=== PATIENT | female | born 1940 | race Caucasian/White ===

== ENCOUNTER 2016-07-01 06:11 | Day surgery (SDC) | payer MEDICARE, OTHER ==
[~2016-07-01] VITALS: Ht 175.3 cm; Wt 88.5 kg
[~2016-07-01 06:11] MED LIST: ADVAIR DISK1 IN; ALL DAY ALLG10 MG OR; AMOXICILLIN/CL875 MG PO; ANUCORT-HC25 MG RE; ASPIRIN LOW81 M1 PO; AUGMENTINES600 PO; BABY ASPIRIN81 MG PO; BACTRIM DS1 TAB PO; BIOTIN5000 MC2 PO; CELEBREX50 MG PO; CEPHALEXIN500 MG PO; CIPROFLOXACN500 MG PO; CYANOCOBALAM1000 MCG IJ; CYANOCOBALAM1000 MCG IM; CYANOCOBALAM1000 MCG SC; DEPO-MEDROL40 MG/ML IM; DIPHENHYDRAM25 M4 PO; FLONASE NASAL50 MCG; FLUARIX QUADRIV1 INJ IM; FLUZONE1 M1 IM; GABAPENTIN300 MG OR; GABAPENTIN300 MG PO; GLIMEPIRIDE2 MG PO; GLIMEPIRIDE4 MG PO; HYCODAN1 ML OR; HYCODAN1 ML PO; IBUPROFEN600 MG PO; ISOSORB DIN30 MG PO; JANUVIA50 MG PO; LEVOTHYROXIN50 MC1 PO; LEXAPRO20 MG PO; LORTAB 5/3255 MG PO; LUNESTA2 M1 OR; LYRICA50 MG PO; MAGNESIUM 250 M1 TAB; MELATONIN5 MG OR; MELOXICAM15 MG PO; MELOXICAM7.5 MG PO; METO50TA52 PO; NAPROSYN500 MG PO; NEURONTIN100 MG PO; NEURONTIN300 MG PO; NEXIUM20 M1 PO; NORCO1 TA1 PO; OMEPRAZOLE20 MG OR; PHILLIPS COLON HEALT PO; POTASSIMIN75 MG PO; PRED FORTE1 % OP; PROAIR HFA IN; PROBIOTI1 OR; PROCTOSOL HC2.5 % RE; PROTONIX40 M2 PO; ROCEPHIN 1 GM1 GM IM; SUPER BIOTIN5000 MCG OR; SYNTHROID100 MCG PO; SYNTHROID25 MCG PO; TOPROL XL25 MG PO; TOPROL XL50 MG PO; TRAMADOL HCL50 MG PO; VERAPAMIL180 M1 OR; ZETIA10 MG PO; ZITHROMAX250 MG PO; ZOFRAN ODT4 MG PO; ZOFRAN4 MG/TAB PO; ZOSTAVAX IM; [UNRECOGNIZED DRUG - OTHER] VA
[2016-07-01 07:39] VITALS: BP 132/70
== END 2016-07-01 08:10 | disposition home or self-care (01) ==
LOC: ORM 06:11
PROVIDERS: ATTEND Anesthesiology Pain Medicine
PROC: 3E0U33Z Introduction of Anti-inflammatory into Joints, Percutaneous Approach (ICD-10-PCS; principal; 2016-07-01)
PROC: 3E0U3BZ Introduction of Anesthetic Agent into Joints, Percutaneous Approach (ICD-10-PCS; 2016-07-01)
DX: M54.2 Cervicalgia (principal)

== ENCOUNTER 2016-07-29 06:32 | Day surgery (SDC) | payer MEDICARE, OTHER ==
[2016-07-29] MEDS ORDERED: METOPROL TAR25 MG PO (06:56)
[2016-07-29 08:59] VITALS: BP 156/74
== END 2016-07-29 09:10 | disposition home or self-care (01) ==
LOC: ORM 06:32
PROVIDERS: ATTEND Anesthesiology Pain Medicine
PROC: 3E0T3BZ Introduction of Anesthetic Agent into Peripheral Nerves and Plexi, Percutaneous Approach (ICD-10-PCS; principal; 2016-07-29)
PROC: 3E0T33Z Introduction of Anti-inflammatory into Peripheral Nerves and Plexi, Percutaneous Approach (ICD-10-PCS; 2016-07-29)
DX: M54.2 Cervicalgia (principal); M47.812 Spondylosis without myelopathy or radiculopathy, cervical region

== ENCOUNTER 2016-08-04 16:28 | Observation (INO) | payer MEDICARE, OTHER ==
[~2016-08-04] VITALS: Ht 175.3 cm; Wt 93.0 kg
[~2016-08-04 16:28] MED LIST changes: +METOPROL TAR25 MG PO
[2016-08-04 16:58] LABS: HEMATOCRIT 40.4 % (37.0-47.0); HEMOGLOBIN 13.3 g/dl (12.0-16.0); IMMATURE GRANULOCYTES 0.8 % (0.0-1.0); MEAN CELL VOLUME 91.8 fL CALC (80.0-100.0); MEAN CORPUSCULAR HGB 30.2 pG CALC (26.0-32.0); MEAN CORPUSCULAR HGB CONC 32.9 g/L CALC (32.0-36.0); NEUT# 4.92 thou/uL (2.00-7.15); RED BLOOD COUNT 4.4 mill/uL (4.20-5.60); RED CELL DISTRI WIDTH 13.5 % (11.5-15.5)
[2016-08-04 17:11] LABS: ALBUMIN 3.4 g/dL (3.2-5.0); ALKALINE PHOSPHATASE 104 u/l (38-126); ANION GAP 11 (6-22 (CALC)); BILIRUBIN, TOTAL 0.5 mg/dL (0.0-1.4); BUN 23 mg/dL (8-23); BUN/CREATININE RATIO 18 (12-20 (CALC)); CALCIUM 8.5 mg/dL (8.4-10.2); CARBON DIOXIDE 23 mmol/l (22-30); CHLORIDE 110 mmol/l (95-108); CREATININE 1.3 mg/dL (0.5-1.0); GFR 40 ML/MIN (>=60 (CALC)); GFR FOR AFR.AMER. 48 ML/MIN (>=60 (CALC)); GLUCOSE 100 mg/dL (82-115); POTASSIUM 4.3 mmol/l (3.5-5.1); SGOT/AST 36 u/l (9-36); SGPT/ALT 35 u/l (11-66); SODIUM 139 mmol/l (137-146); TOTAL PROTEIN 6.3 g/dL (6.3-8.2)
[2016-08-04 17:23] LABS: MYOGLOBIN 38 ng/mL (0 - 62)
[2016-08-04 19:45] VITALS: BP 152/88
[2016-08-04 21:45] VITALS: BP 147/72
[2016-08-04 23:28] VITALS: BP 126/66
[2016-08-05 00:48] LABS: URINE BILIRUBIN - DIPSTICK NEGATIVE (NEGATIVE); URINE BLOOD DIPSTICK NEGATIVE (NEGATIVE); URINE CLARITY CLEAR; URINE COLOR YELLOW; URINE GLUCOSE - DIPSTICK 250 mg/dL (NEGATIVE); URINE KETONE NEGATIVE (NEGATIVE); URINE LEUK ESTERASE NEGATIVE (Negative); URINE NITRITE - DIPSTICK NEGATIVE (Negative); URINE PROTEIN - DIPSTICK NEGATIVE (NEG-TRACE); URINE UROBILINOGEN - DIPSTICK 0.2 E.U./dL (0.2)
[2016-08-05 03:40] VITALS: BP 136/75
[2016-08-05 06:30] LABS: CHOLESTEROL HDL RATIO 2.5 (<4.4 (CALC))
[2016-08-05 08:37] VITALS: BP 150/79
[2016-08-05 09:41] VITALS: BP 170/78
[2016-08-05 09:42] VITALS: BP 160/78
[2016-08-05 09:43] VITALS: BP 140/80
[2016-08-05] MEDS ORDERED: ASPIRIN ADULT L81 M2 PO (11:35)
[2016-08-05 12:53] VITALS: BP 147/78
== END 2016-08-05 12:45 | disposition home or self-care (01) ==
LOC: ENPENDDIS → ED 16:28 → ED-I 17:19 → ED 17:31 → MS2 17:32
PROVIDERS: Emergency Medicine; Internal Medicine; ADMIT Internal Medicine; ATTEND Internal Medicine
DX: R07.9 Chest pain, unspecified (principal); R55 Syncope and collapse; I95.9 Hypotension, unspecified; R06.02 Shortness of breath; I10 Essential (primary) hypertension; I25.10 Atherosclerotic heart disease of native coronary artery without angina pectoris; E78.5 Hyperlipidemia, unspecified; F41.9 Anxiety disorder, unspecified; F32.9 Major depressive disorder, single episode, unspecified; E03.9 Hypothyroidism, unspecified; I25.2 Old myocardial infarction; Z98.84 Bariatric surgery status; Z95.5 Presence of coronary angioplasty implant and graft

== ENCOUNTER 2017-01-11 14:38 | Emergency (ER) | payer MEDICARE, OTHER ==
[~2017-01-11] VITALS: Ht 175.3 cm; Wt 92.0 kg
[~2017-01-11 14:38] MED LIST changes: +ASPIRIN ADULT L81 M2 PO; -MAGNESIUM 250 M1 TAB; +MAGNESIUM 250 M1 TAB PO
[2017-01-11] MEDS ORDERED: B-12 IM (15:16)
[2017-01-11] MEDS ORDERED: IRON IM (15:18)
[2017-01-11] MEDS ORDERED: ULTRAM50 M1 PO (15:42)
[2017-01-11 16:10] VITALS: BP 140/80
== END 2017-01-11 16:10 | disposition home or self-care (01) ==
LOC: ED 14:38
PROC: 2W3DX1Z Immobilization of Left Lower Arm using Splint (ICD-10-PCS; principal; 2017-01-11)
DX: S52.615A Nondisplaced fracture of left ulna styloid process, initial encounter for closed fracture (principal); S52.502A Unspecified fracture of the lower end of left radius, initial encounter for closed fracture; W01.0XXA Fall on same level from slipping, tripping and stumbling without subsequent striking against object, initial encounter; Y93.01 Activity, walking, marching and hiking; Y92.009 Unspecified place in unspecified non-institutional (private) residence as the place of occurrence of the external cause

== ENCOUNTER 2017-03-23 09:30 | Observation (INO) | payer MEDICARE, OTHER ==
[~2017-03-23] VITALS: Ht 172.7 cm; Wt 93.0 kg
[~2017-03-23 09:30] MED LIST changes: +B-12 IM; +IRON IM; +ULTRAM50 M1 PO
--- NOTE | 2017-03-23 09:30 | NUR ---
PT TO ROOM 13 VIA WC. PT ABLE TO STAND AND TRANSFER SELF WITHOUT ASSIST.
[2017-03-23 10:17] LABS: HEMATOCRIT 37.1 % (37.0-47.0); HEMOGLOBIN 12.4 g/dl (12.0-16.0); IMMATURE GRANULOCYTES 0.2 % (0.0-1.0); MEAN CELL VOLUME 91.4 fL CALC (80.0-100.0); MEAN CORPUSCULAR HGB 30.5 pG CALC (26.0-32.0); MEAN CORPUSCULAR HGB CONC 33.4 g/L CALC (32.0-36.0); NEUT# 2.93 thou/uL (2.00-7.15); RED BLOOD COUNT 4.06 mill/uL (4.20-5.60); RED CELL DISTRI WIDTH 13.9 % (11.5-15.5)
[2017-03-23] MEDS ORDERED: AMITRIPTYLIN25 MG PO (10:22)
[2017-03-23] MEDS ORDERED: MULTIVITAMI1 PO (10:23)
[2017-03-23] MEDS ORDERED: MELATONIN1 TA1 PO (10:24)
--- NOTE | 2017-03-23 10:24 | NUR ---
REVIEWED HOME MEDS WITH PT & . PT TALKATIVE & JOKING WITH STAFF.
--- NOTE | 2017-03-23 10:27 | NUR ---
1ST NITRO GIVEN AT 1022, STATES 5/10 PAIN- LESSER THAN BEFORE. 2ND NITRO GIVEN AT 1027, STATES 4/10 PAIN. 3RD NITRO NOT GIVEN DUE TO BP DROP TO 113/56.
[2017-03-23 10:40] LABS: ANION GAP 14 (6-22 (CALC)); BUN 13 mg/dL (8-23); BUN/CREATININE RATIO 12 (12-20 (CALC)); CARBON DIOXIDE 22 mmol/l (22-30); CHLORIDE 108 mmol/l (95-108); CREATININE 1.1 mg/dL (0.5-1.0); GFR 48 ML/MIN (>=60 (CALC)); GFR FOR AFR.AMER. 59 ML/MIN (>=60 (CALC)); POTASSIUM 4.6 mmol/l (3.5-5.1); SODIUM 140 mmol/l (137-146)
--- NOTE | 2017-03-23 10:55 | NUR ---
PT STATES CP IS NOW 4/10 AND NO LONGER RADIATES TO NECK OR BACK. DENIES NAUSEA. DISCUSSED PAIN MEDICATION ORDERED WITH DR RIOJAS. BEULAH ADVISED TO HOLD MORPHINE & ZOPFRAN AT THIS TIME.
--- NOTE | 2017-03-23 11:40 | NUR ---
PT STATES CP IS 5/10, BP BACK UP TO WHEN SHE ARRIVED IN ER. @ BEDSIDE. WAITING ON ROOM FOR ADMIT.
--- NOTE | 2017-03-23 12:02 | NUR ---
RECVING [facility] CASTILLO.
--- NOTE | 2017-03-23 12:51 | NUR ---
RECVING EL[facility]
--- NOTE | 2017-03-23 13:01 | NUR ---
Admission Note Report Given to: KEERTHI Transported by: Wheelchair X Stretcher Transported with: X Nurse Transporter X Patent IV O2 X Medical Office Clerk
[2017-03-23 13:10] VITALS: BP 160/57
--- NOTE | 2017-03-23 13:10 | NUR ---
PT TO ROOM VIA WC ACCOMPANIED BY STAFF; AMBULATORY TO BED WITH STAND BY ASSIST; PT A/O X3; DENIES PAIN OR DISCOMFORT; TELE MONITOR IN PLACE; #[address], NO REDNESS OR EDEMA NOTED; HAND SPLINT TO LEFT ARM R/T PREVIOUS FX; PT ORIENTED TO ROOM AND CALL SYSTEM; WILL CONTINUE TO MONITOR.
--- NOTE | 2017-03-23 13:20 | NUR ---
PT TRANSFERED TO [facility] IN STABLE CONDITION. TOOK PTS PURSE.
--- NOTE | 2017-03-23 14:30 | NUR ---
PT MEDICATED FOR C/O NAUSEA; CALL BUENO WITHIN REACH; WILL CONTINUE TO MONITOR.
--- NOTE | 2017-03-23 15:42 | NUR ---
Patient feels better after given Phenergan. Patient has dry mouth, I notified the WOOD DOWEL MACHINE OPERATOR. c
[2017-03-23 16:12] VITALS: BP 176/66
--- NOTE | 2017-03-23 17:50 | NUR ---
PT SITTING ON SIDE OF BED; TOLERATING DINNER WELL; NO COMPLAINTS VOICED AT THIS TIME; CALL BUENO WITHIN REACH; WILL CONTINUE TO MONITOR.
--- NOTE | 2017-03-23 20:10 | NUR ---
FOUND PT ALERT AND ORIENTED X4, AMBULATING TO BRP, STEADY GAIT NOTED, SIGNIFICANT OTHER AT BEDSIDE, NO S/S OF DISTRESS NOTED, DENIES CHEST PAIN OR SOB, RESP ARE EVEN AND UNLABORED ON ROOM AIR, OXYGEN SET UP AT BEDSIDE, FAMILY MEMBER BROUGHT FOOD FROM [employer] FOR PT, EDUCATED PT ABOUT DIET ORDERED, VOICES UNDERSTANDING, EXPLAINED SAFETY MEASURES AND PLAN OF CARE, WELL MED SCHEDULE, INSTRUCTED TO REPORT ANY PAIN OR DISCOMFORT IMMEDIATELTY, VERBALIZES UNDERSTANDING, FREQUENTLY ROUNDS MADE. CALL BUENO, BST, FRESH WATER AND NEEDED SUPPLIES ARE WITHIN REACH.
--- NOTE | 2017-03-23 22:00 | NUR ---
PT REQUESTING SLEEPING PILL, NOTIFIED DR. LOPEZ OF PT REQUEST, WAITING FOR PHARMACY TO PROFILE RESTORIL.
--- NOTE | 2017-03-24 00:01 | NUR ---
PT APPEARS TO BE SLEEPING WITH EYES CLOSED, AROUSES EASILY TO ANY STIMULI, DENIES CHEST PAIN OR SOB, NO S/S OF DISTRESS NOTED, FREQUENTLY ROUNDS MADE.
[2017-03-24 00:12] VITALS: BP 153/68
[2017-03-24 03:49] VITALS: BP 156/82
--- NOTE | 2017-03-24 04:44 | NUR ---
PT VOICES NO COMPLAINTS, APPEARS TO BE SLEEPING COMFORTABLY IN NO DISTRESS, RESP ARE EVEN AND UNLABORED, CALL BUENO IS WITHIN REACH. FREQUENTLY ROUNDS MADE.
--- NOTE | 2017-03-24 06:09 | NUR ---
PT C/O ACHING JAW PAIN; RATES IT AT 6/10, MEDICATED WITH ULTRAM PO PER ORDERS, PUBLIC HEALTH SERVICE OFFICER IN PT ROOM DRAWING TROPONIN AND OTHER LABS ORDER, NO DISTRESS NOTED, DENIES SOB, RESP ARE EVEN AND UNLABORED ON ROOM AIR, CALL BUENO AT REACH, FREQUENTLY ROUNDS MADE.
[2017-03-24 06:24] LABS: HEMATOCRIT 41.5 % (37.0-47.0); HEMOGLOBIN 13.5 g/dl (12.0-16.0); MEAN CELL VOLUME 92.8 fL CALC (80.0-100.0); MEAN CORPUSCULAR HGB 30.2 pG CALC (26.0-32.0); MEAN CORPUSCULAR HGB CONC 32.5 g/L CALC (32.0-36.0); RED BLOOD COUNT 4.47 mill/uL (4.20-5.60); RED CELL DISTRI WIDTH 14.1 % (11.5-15.5)
[2017-03-24 06:36] LABS: CHOLESTEROL HDL RATIO 1.9 (<4.4 (CALC)); CREATININE 1.1 mg/dL (0.5-1.0); POTASSIUM 4.7 mmol/l (3.5-5.1)
--- NOTE | 2017-03-24 06:41 | NUR ---
PT STATES THE ACHING PAIN ON HER RIGHT JAW IS ABOUT THE SAME, PAIN DECREASED FROM 6/10 TO 5/10, NO DISTRESS NOTED, DENIES CHEST PAIN, OR PAIN IN ANOTHER BODY PART. RESP ARE EVEN AND UNLABORED ON ROOM AIR, WILL CONTINUE TO MONITOR CLOSELY.
--- NOTE | 2017-03-24 07:40 | NUR ---
REPORT RECEIVED FROM NIGHT NURSE. UPON ENTERING ROOM, PT.HAS A CLOTH OVER HER HEAD AND APPEARS TO BE CRYING. SHE DENIES CRYING WHEN ASKED, BUT REPORTS PAIN IN HER JAW 5/10. V/S ASSESSED AND EKG WERE ORDERED. PT.MEDICATED FOR P
[2017-03-24 07:45] VITALS: BP 161/61
--- NOTE | 2017-03-24 07:55 | NUR ---
PT.APPEARS TO BE CALMER AT THIS TIME AND REPORTS PAIN IS IMPROVING SOMEWHAT.
--- NOTE | 2017-03-24 10:00 | NUR ---
PT.MEDICATED AM ORDERS PROVIDE. PT.IS UPRIGHT IN RECLINER AND IS AT BEDSIDE. PT.ASSESSED AND POC DISCUSSED. PT.DENIES ANY OTHER NEEDS AT THIS TIME.
[2017-03-24 11:44] VITALS: BP 149/77
--- NOTE | 2017-03-24 16:31 | NUR ---
Patient feels good and getting a discharge. Patient was couseled on Imdur ER and Omperazole. c
[2017-03-24] MEDS ORDERED: OMEPRAZOLE20 MG PO (17:07)
[2017-03-24] MEDS ORDERED: ISOSORB MONO30 MG PO (17:07)
--- NOTE | 2017-03-24 17:24 | NUR ---
PT.DISCHARGED OFF UNIT FLOOR ACCOMPANIED BY US KEVIN. PT.IV REMOVED/SITE APPEARS HEALTHY, TELEMTRY MONITOR REMOVED. PT.WAS IN GOOD CONDITION UPON DISCHARGE.
== END 2017-03-24 17:17 | disposition home or self-care (01) ==
LOC: ED 09:30 → ED-I 10:58 → ED 11:15 → MS2 11:16
PROVIDERS: Family Medicine; ADMIT Internal Medicine; ATTEND Internal Medicine
DX: R07.89 Other chest pain (principal); I25.10 Atherosclerotic heart disease of native coronary artery without angina pectoris; I12.9 Hypertensive chronic kidney disease with stage 1 through stage 4 chronic kidney disease, or unspecified chronic kidney disease; N18.3 Chronic kidney disease, stage 3 (moderate); E78.5 Hyperlipidemia, unspecified; F32.9 Major depressive disorder, single episode, unspecified; F41.9 Anxiety disorder, unspecified; E03.9 Hypothyroidism, unspecified; I25.2 Old myocardial infarction; G62.9 Polyneuropathy, unspecified; K21.9 Gastro-esophageal reflux disease without esophagitis; T14.8XXS Other injury of unspecified body region, sequela; V89.2XXS Person injured in unspecified motor-vehicle accident, traffic, sequela; Z98.84 Bariatric surgery status; Z87.442 Personal history of urinary calculi; Z95.5 Presence of coronary angioplasty implant and graft

== ENCOUNTER 2017-04-29 18:40 | Observation (INO) | payer MEDICARE, OTHER ==
[~2017-04-29] VITALS: Ht 172.7 cm; Wt 88.1 kg
[~2017-04-29 18:40] MED LIST changes: +AMITRIPTYLIN25 MG PO; +ISOSORB MONO30 MG PO; +MELATONIN1 TA1 PO; +MULTIVITAMI1 PO; +NITROSTAT0.3 MG SL; +OMEPRAZOLE20 MG PO; +TRAMADOL HYDROC50 MG PO
--- NOTE | 2017-04-29 18:55 | NUR ---
PT TO ROOM FOR EXAM
--- NOTE | 2017-04-29 19:50 | NUR ---
Pt on [facility]. No obvious distress noted. Pt & spouse state that pain started at 1500 hrs this evening, exact same as previous pain. Pt does have cardiac stent placement in recent past.
[2017-04-29 20:11] LABS: HEMATOCRIT 37.3 % (37.0-47.0); HEMOGLOBIN 11.9 g/dl (12.0-16.0); IMMATURE GRANULOCYTES 0.2 % (0.0-1.0); MEAN CELL VOLUME 93.5 fL CALC (80.0-100.0); MEAN CORPUSCULAR HGB 29.8 pG CALC (26.0-32.0); MEAN CORPUSCULAR HGB CONC 31.9 g/L CALC (32.0-36.0); NEUT# 3.34 thou/uL (2.00-7.15); RED BLOOD COUNT 3.99 mill/uL (4.20-5.60); RED CELL DISTRI WIDTH 13.4 % (11.5-15.5)
[2017-04-29 20:21] LABS: ALBUMIN 3.6 g/dL (3.2-5.0); ALKALINE PHOSPHATASE 143 u/l (38-126); AMYLASE 64 u/l (30-110); BILIRUBIN, TOTAL 0.8 mg/dL (0.0-1.4); BUN 15 mg/dL (8-23); BUN/CREATININE RATIO 14 (12-20 (CALC)); CARBON DIOXIDE 28 mmol/l (22-30); CHLORIDE 104 mmol/l (95-108); CREATININE 1.1 mg/dL (0.5-1.0); GFR 48 ML/MIN (>=60 (CALC)); GFR FOR AFR.AMER. 59 ML/MIN (>=60 (CALC)); LIPASE 168 u/l (23-300); SGOT/AST 70 u/l (9-36); SGPT/ALT 33 u/l (11-66); SODIUM 140 mmol/l (137-146); TOTAL PROTEIN 6.6 g/dL (6.3-8.2)
[2017-04-29 20:23] LABS: ANION GAP 13 (6-22 (CALC))
[2017-04-29 20:26] LABS: POTASSIUM 5.2 mmol/l (3.5-5.1)
--- NOTE | 2017-04-29 20:36 | NUR ---
Pt states that pain is at a 1 on 1:10 leverl. Advised pt that she will probably be spending the evening in the hospital. Pt states that she understands and is in agreement with decision. Justice also agrees aith decision.
--- NOTE | 2017-04-29 20:44 | NUR ---
pt resting comfortably at this time. Spouse at bedside.
--- NOTE | 2017-04-29 22:39 | NUR ---
Report called to 2nd floor. Pt transported to floor via rmoline
[2017-04-29 22:40] VITALS: BP 133/69
--- NOTE | 2017-04-29 22:40 | NUR ---
PT TO ROOM 279 VIA STRETCHER ACCOMPANIED BY ER STAFF. PT IS ALERT AND ORIENTED X3. PERRLA. RESP ARE EVEN AND UNLABORED. NO DISTRESS NOTED. LUNGS ARE CLEAR. HR REGULAR. PT ON TELE. PULSES PALPABLE THROUGHOUT. NO EDEMA NOTED. BS ACTIVE. PT REPORTS NORMAL BM EARLIER TODAY. DENIES CP AT THIS TIME. DENIES SOB AT THIS TIME. #20 LAC SALINE LOCKED. NO REDNESS OR EDEMA NOTED. WILL CONTINUE TO GREATER [facility]
[2017-04-30] VITALS: BP 129/56
--- NOTE | 2017-04-30 | NUR ---
PT RESTING IN BED WITH EYES CLOSED. NO COMPLAINTS AT THIS TIME. RESP ARE EVEN AND UNLABORED. NO DISTRESS NOTED. WILL CONTINUE TO MONTIOR
--- NOTE | 2017-04-30 04:00 | NUR ---
PT RESTING IN BED WITH EYES CLOSED. RESP ARE EVEN AND UNLABORED. NO DISTRESS NOTED WILL CONTINUE TO MONITOR
[2017-04-30 05:28] VITALS: BP 136/76
[2017-04-30 06:40] LABS: HEMATOCRIT 35.3 % (37.0-47.0); HEMOGLOBIN 11.2 g/dl (12.0-16.0); IMMATURE GRANULOCYTES 0.2 % (0.0-1.0); MEAN CELL VOLUME 94.6 fL CALC (80.0-100.0); MEAN CORPUSCULAR HGB CONC 31.7 g/L CALC (32.0-36.0); NEUT# 1.85 thou/uL (2.00-7.15); RED BLOOD COUNT 3.73 mill/uL (4.20-5.60); RED CELL DISTRI WIDTH 13.5 % (11.5-15.5)
[2017-04-30 06:47] LABS: CHOLESTEROL HDL RATIO 1.9 (<4.4 (CALC))
[2017-04-30 06:55] LABS: CREATININE 1.1 mg/dL (0.5-1.0); POTASSIUM 4.6 mmol/l (3.5-5.1)
--- NOTE | 2017-04-30 07:00 | NUR ---
SHIFT CHANGE REPORT FROM IVETH BATES SLEEPING IN RIGHT SIDE-LYING POSITION, BREATHING EVEN AND NON-LABORED, TELE MONITOR IN PLACE, NO SIGN DISCOMFORT, CALL BUENO IN REACH.
[2017-04-30 08:19] VITALS: BP 138/71
[2017-04-30 11:00] VITALS: BP 147/56
--- NOTE | 2017-04-30 12:00 | NUR ---
SITTING UP IN BED HAVING MEAL, DENIES DISCOMFORT, INQUIRED ABOUT TIME MD COMING AND INFORMED HE WILL BE HERE BUT STAFF UNABLE TO GIVE DEFINITE TIME. WILL CONTINUE TO MONITOR.
--- NOTE | 2017-04-30 16:03 | NUR ---
RESTING IN BED, DR LOPEZ HERE ROUNDING AT THIS TIME, PT REPORTS SHE WANTS TO GO HOME, DENIES DISCOMFORT, WILL CONTINUE TO MONITOR.
[2017-04-30 16:53] VITALS: BP 142/63
--- NOTE | 2017-04-30 17:31 | NUR ---
Discharge instructions given. Patient verbalizes understanding of same. Discharged in good condition via Wheelchair to Home with spouse. All belongings sent with pt.
== END 2017-04-30 17:09 | disposition home or self-care (01) ==
LOC: ED 18:40 → ED-I 20:00 → ED 21:03 → MS2 21:04
PROVIDERS: Emergency Medicine; Internal Medicine; ADMIT Internal Medicine; ATTEND Internal Medicine
DX: I25.118 Atherosclerotic heart disease of native coronary artery with other forms of angina pectoris (principal); I10 Essential (primary) hypertension; E03.9 Hypothyroidism, unspecified; M19.90 Unspecified osteoarthritis, unspecified site; E78.5 Hyperlipidemia, unspecified; I25.2 Old myocardial infarction; F32.9 Major depressive disorder, single episode, unspecified; F41.9 Anxiety disorder, unspecified; Z98.84 Bariatric surgery status; Z86.73 Personal history of transient ischemic attack (TIA), and cerebral infarction without residual deficits; Z95.5 Presence of coronary angioplasty implant and graft

== ENCOUNTER 2017-06-21 06:01 | Observation (INO) | payer MEDICARE, OTHER ==
[~2017-06-21] VITALS: Ht 172.7 cm; Wt 95.8 kg
[2017-06-21 06:39] LABS: HEMATOCRIT 32.6 % (37.0-47.0); HEMOGLOBIN 10.5 g/dl (12.0-16.0); IMMATURE GRANULOCYTES 0.2 % (0.0-1.0); MEAN CELL VOLUME 91.8 fL CALC (80.0-100.0); MEAN CORPUSCULAR HGB 29.6 pG CALC (26.0-32.0); MEAN CORPUSCULAR HGB CONC 32.2 g/L CALC (32.0-36.0); NEUT# 1.86 thou/uL (2.00-7.15); RED BLOOD COUNT 3.55 mill/uL (4.20-5.60)
[2017-06-21 07:01] LABS: ALBUMIN 3.2 g/dL (3.2-5.0); ALKALINE PHOSPHATASE 117 u/l (38-126); ANION GAP 12 (6-22 (CALC)); BILIRUBIN, TOTAL 0.5 mg/dL (0.0-1.4); BUN 14 mg/dL (8-23); BUN/CREATININE RATIO 13 (12-20 (CALC)); CARBON DIOXIDE 26 mmol/l (22-30); CHLORIDE 106 mmol/l (95-108); CREATININE 1.1 mg/dL (0.5-1.0); GFR 48 ML/MIN (>=60 (CALC)); GFR FOR AFR.AMER. 59 ML/MIN (>=60 (CALC)); POTASSIUM 4.5 mmol/l (3.5-5.1); SGOT/AST 54 u/l (9-36); SGPT/ALT 31 u/l (11-66); SODIUM 139 mmol/l (137-146); TOTAL PROTEIN 6.4 g/dL (6.3-8.2)
[2017-06-21 07:10] LABS: ACT PARTIAL THROMBO TIME 29.2 SECONDS (20.0-32.5)
[2017-06-21] MEDS ORDERED: ASPIRIN81 MG PO (07:13)
[2017-06-21 07:14] LABS: MYOGLOBIN 32 ng/mL (0 - 62)
[2017-06-21 09:46] VITALS: BP 191/83
[2017-06-21 11:29] VITALS: BP 165/64
[2017-06-21 15:23] VITALS: BP 150/73
[2017-06-21 19:00] VITALS: BP 151/79
[2017-06-22] VITALS: BP 123/66
[2017-06-22 04:15] VITALS: BP 150/90
[2017-06-22 05:13] LABS: HEMATOCRIT 36.5 % (37.0-47.0); HEMOGLOBIN 12.1 g/dl (12.0-16.0); MEAN CELL VOLUME 90.6 fL CALC (80.0-100.0); MEAN CORPUSCULAR HGB CONC 33.2 g/L CALC (32.0-36.0); RED BLOOD COUNT 4.03 mill/uL (4.20-5.60); RED CELL DISTRI WIDTH 14.3 % (11.5-15.5)
[2017-06-22 05:25] LABS: ANION GAP 15 (6-22 (CALC)); BUN 13 mg/dL (8-23); BUN/CREATININE RATIO 14 (12-20 (CALC)); CARBON DIOXIDE 26 mmol/l (22-30); CHLORIDE 103 mmol/l (95-108); GFR 54 ML/MIN (>=60 (CALC)); GFR FOR AFR.AMER. > 60 ML/MIN (>=60 (CALC)); MAGNESIUM 1.7 mg/dL (1.6-2.3); POTASSIUM 4.7 mmol/l (3.5-5.1); SODIUM 139 mmol/l (137-146)
[2017-06-22 08:14] VITALS: BP 144/59
[2017-06-22 11:03] VITALS: BP 153/71
[2017-06-22] MEDS ORDERED: ISOSORB MONO60 M1 PO (12:53)
[2017-06-23] MEDS ORDERED: CELEBREX100 M1 PO (15:50)
[2017-06-23] MEDS ORDERED: LEVOTHYROXIN50 MCG PO (15:51)
[2017-06-23] MEDS ORDERED: LOSARTAN POT25 MG PO (15:56)
[2017-06-23] MEDS ORDERED: METO50TA52 PO (15:57)
== END 2017-06-22 13:46 | disposition home or self-care (01) ==
LOC: ED 06:01 → ED-I 08:05 → ED 08:11 → MS2 08:12
PROVIDERS: Emergency Medicine; Nurse Practitioner Family; ADMIT Internal Medicine; ATTEND Internal Medicine
DX: R07.2 Precordial pain (principal); I25.119 Atherosclerotic heart disease of native coronary artery with unspecified angina pectoris; E78.5 Hyperlipidemia, unspecified; I16.0 Hypertensive urgency; I13.10 Hypertensive heart and chronic kidney disease without heart failure, with stage 1 through stage 4 chronic kidney disease, or unspecified chronic kidney disease; D50.9 Iron deficiency anemia, unspecified; E11.22 Type 2 diabetes mellitus with diabetic chronic kidney disease; N18.3 Chronic kidney disease, stage 3 (moderate); F41.9 Anxiety disorder, unspecified; E03.9 Hypothyroidism, unspecified; M19.90 Unspecified osteoarthritis, unspecified site; F32.9 Major depressive disorder, single episode, unspecified; G62.9 Polyneuropathy, unspecified; M54.2 Cervicalgia; I25.2 Old myocardial infarction; Z87.442 Personal history of urinary calculi; Z98.84 Bariatric surgery status; Z95.5 Presence of coronary angioplasty implant and graft; Z86.73 Personal history of transient ischemic attack (TIA), and cerebral infarction without residual deficits
CPT/HCPCS: J1756

== ENCOUNTER 2017-06-23 12:03 | Inpatient (IN) | payer MEDICARE, OTHER ==
[2017-06-23] VITALS (11 sets, daily range): BP systolic 94–183; BP diastolic 60–85
[~2017-06-23] VITALS: Ht 172.7 cm; Wt 84.4 kg
[~2017-06-23 12:03] MED LIST changes: +ASPIRIN81 MG PO; +ISOSORB MONO60 M1 PO
--- NOTE | 2017-06-23 12:10 | NUR ---
PT ARRIVED TO THE UNIT VIA WC A DIRECT ADMIT, PT ASSISTED WITH CHANGING INTO HOSPITAL GOWN, MONITORING EQUIPMENT AND CALL BUENO SYSTEM EXPLAINED TO PT PRIOR TO APPLYING, PT VERBALIZED UNDERSTAND, PT A & O X3, PERRL, HR 130, RESP. 20, BP 129/65, O2 96% ON RA, LUNG SOUNDS CLEAR IN ALL ANTUNEZ, STRONG RADIAL & PEDAL PULSES, SKIN CD&I, 20G RW IV STARTED WITH NO INCIDENT, SALINE LOCKED, PT COMPLAINS OF LUQ PAIN, ADMISSION ASSESSMENT COMPLETE, SEE INTERVENTIONS, SAFETY MEASURES INTRODUCED, CALL BUENO WITHIN REACH
--- NOTE | 2017-06-23 12:20 | NUR ---
DR LOPEZ AT BEDSIDE DISCUSSING PLAN OF CARE
--- NOTE | 2017-06-23 13:10 | NUR ---
DR SANCHEZ AT BEDSIDE DISCUSSING PLAN OF CARE
[2017-06-23 13:21] LABS: HEMATOCRIT 39.5 % (37.0-47.0); HEMOGLOBIN 12.6 g/dl (12.0-16.0); IMMATURE GRANULOCYTES 0.3 % (0.0-1.0); MEAN CELL VOLUME 91.6 fL CALC (80.0-100.0); MEAN CORPUSCULAR HGB 29.2 pG CALC (26.0-32.0); MEAN CORPUSCULAR HGB CONC 31.9 g/L CALC (32.0-36.0); NEUT# 3.25 thou/uL (2.00-7.15); RED BLOOD COUNT 4.31 mill/uL (4.20-5.60); RED CELL DISTRI WIDTH 14.5 % (11.5-15.5)
--- NOTE | 2017-06-23 13:41 | NUR ---
R.T. AT BEDSIDE DOING AND EKG FOR RHYTHM CHANGE
--- NOTE | 2017-06-23 14:45 | NUR ---
PT ASSISTED TO THE BSC AND BACK TO BE, PT AMBULATED WITH A SLOW STEADY GAIT, PT TOLERATED WELL, CALL BUENO WITHIN REACH
--- NOTE | 2017-06-23 15:45 | NUR ---
PT'S AT BEDSIDE
[2017-06-23] MEDS ORDERED: CELEBREX100 M1 PO (15:50)
[2017-06-23] MEDS ORDERED: LEVOTHYROXIN50 MCG PO (15:51)
[2017-06-23] MEDS ORDERED: LOSARTAN POT25 MG PO (15:56)
[2017-06-23] MEDS ORDERED: METO50TA52 PO (15:57)
[2017-06-23 16:21] LABS: URINE BILIRUBIN - DIPSTICK NEGATIVE (NEGATIVE); URINE BLOOD DIPSTICK TRACE-INTACT (NEGATIVE); URINE COLOR YELLOW; URINE GLUCOSE - DIPSTICK NEGATIVE (NEGATIVE); URINE KETONE NEGATIVE (NEGATIVE); URINE NITRITE - DIPSTICK NEGATIVE (Negative); URINE PROTEIN - DIPSTICK NEGATIVE (NEG-TRACE); URINE UROBILINOGEN - DIPSTICK 0.2 E.U./dL (0.2)
[2017-06-23 16:23] LABS: URINE CLARITY SL CLOUDY; URINE LEUK ESTERASE MODERATE (NEGATIVE)
--- NOTE | 2017-06-23 16:24 | NUR ---
PT LAYING IN BED WATCHING TV, VERBALIZES NO COMPLAINTS, PT VITALS REMAIN STABLE, AT BEDSIDE, CALL BUENO WITHIN REACH
[2017-06-23 16:31] LABS: URINE BACTERIA MANY hpf; URINE SQUAMOUS EPITHELIAL CELL FEW EPI/hpf (0-FEW)
--- NOTE | 2017-06-23 17:37 | NUR ---
SETUP ASSISTANCE PROVIDED WITH PM MEAL, REMAINS AT BEDSIDE, CALL BUENO WITHIN REACH
--- NOTE | 2017-06-23 19:00 | NUR ---
awake. denies chest pain. statistics teacher shows sinus rhythm. #20 rw. ns infusing @ 20cchr. po fluids taken well. voids per bsc. fall precautions cont.
--- NOTE | 2017-06-23 21:10 | NUR ---
restoril 15mg po per request for sleep.
--- NOTE | 2017-06-23 21:35 | NUR ---
#20 started rac x1 stick in prep for ct thorax.
--- NOTE | 2017-06-23 21:40 | NUR ---
to ct per w/c.
--- NOTE | 2017-06-23 22:00 | NUR ---
returned from [facility]. [facility].
[2017-06-24] VITALS (12 sets, daily range): BP systolic 105–163; BP diastolic 41–82
--- NOTE | 2017-06-24 00:01 | NUR ---
eyes closed. no apparent distress. shared services representative shows sinus rhythm.
--- NOTE | 2017-06-24 02:00 | NUR ---
resting quietly. resps even & unlablored. no apparent distress.
--- NOTE | 2017-06-24 04:00 | NUR ---
blood drawn & sent to lab.
--- NOTE | 2017-06-24 04:40 | NUR ---
lab here. blood redrawn.
[2017-06-24 05:09] LABS: HEMATOCRIT 34.4 % (37.0-47.0); HEMOGLOBIN 11.2 g/dl (12.0-16.0); IMMATURE GRANULOCYTES 0.2 % (0.0-1.0); MEAN CELL VOLUME 91.5 fL CALC (80.0-100.0); MEAN CORPUSCULAR HGB 29.8 pG CALC (26.0-32.0); MEAN CORPUSCULAR HGB CONC 32.6 g/L CALC (32.0-36.0); NEUT# 2.6 thou/uL (2.00-7.15); RED BLOOD COUNT 3.76 mill/uL (4.20-5.60); RED CELL DISTRI WIDTH 14.6 % (11.5-15.5)
[2017-06-24 05:31] LABS: ALKALINE PHOSPHATASE 114 u/l (38-126); ANION GAP 12 (6-22 (CALC)); BILIRUBIN, TOTAL 0.5 mg/dL (0.0-1.4); BUN 12 mg/dL (8-23); BUN/CREATININE RATIO 13 (12-20 (CALC)); CARBON DIOXIDE 25 mmol/l (22-30); CHLORIDE 107 mmol/l (95-108); GFR 54 ML/MIN (>=60 (CALC)); GFR FOR AFR.AMER. > 60 ML/MIN (>=60 (CALC)); POTASSIUM 4.1 mmol/l (3.5-5.1); SGOT/AST 39 u/l (9-36); SGPT/ALT 29 u/l (11-66); SODIUM 140 mmol/l (137-146); TOTAL PROTEIN 5.9 g/dL (6.3-8.2)
--- NOTE | 2017-06-24 06:00 | NUR ---
no change in condition this shift. cardiac rn shows sinus rhythm.
--- NOTE | 2017-06-24 07:05 | NUR ---
PT ALERT AND ORIENTED, RESTING IN BED, AM ASSESSMENT COMPLETED, SEE INTERVENTIONS, PT DENIES ANY COMPLAINTS, TELE READING SB-SR 50-70'S LUNGS CLAAR WITH NO SOB OR DISTRESS NOTED ABD SOFT AND BS ACTIVE. MOVES ALL EXTREMETIES WELL TRACE PEDAL EDEMA NOTED, IV ACCESSES INTACT SALINE LOCKED, COMFORT MEASURES PROVIDED SAFETY MEASURES REINFORCED, WILL CONTINUE TO MONITOR. CALL BUENO WITHIN REACH
--- NOTE | 2017-06-24 07:15 | NUR ---
PT OOB TO BSC WITH STAND BY ASSIST, CALL BUENO WITHIN REACH,
--- NOTE | 2017-06-24 07:41 | NUR ---
SET UP ASSIST PROVIDED FOR AM MEAL, CALL MYLES WITHIN REACH, PT REQUESTING WE CALL HER SUGAR GRINDER AND CANCEL HER APPT FOR THIS AM.WILL CALL WHEN OFFICE OPENS
--- NOTE | 2017-06-24 08:12 | NUR ---
PT WAS CONTINENT EARLIER OF LARGE [place] CLOUDY RENZO URINE WIHT ODOR NOTED, WILL NOTIFY MD ON AM ROUNDS
--- NOTE | 2017-06-24 09:15 | NUR ---
EKG COMPLETED PER REQUEST OF TAKES AM PO MEDICATIONS W/O INCIDENT, CALL BUENO WITHIN REACH, WILL CONTINUE TO MONITOR.
--- NOTE | 2017-06-24 10:31 | NUR ---
PT RESTING IN BED, DOZES INTERMITTENLY, OFFERS NO NEW COMPLAINTS, CALL BUENO WITHIN REACH, WILL CONTINUE TO MONITOR.
--- NOTE | 2017-06-24 12:08 | NUR ---
SET UP ASSIST FOR AFTERNOON MEAL, PT SPOUSE HELPED TO HER TO BSC EARLIER AND PT TOLERATED WELL, IV ROCPEHINE COMPLETED EARLIER W/O INCIDENT, CALL BUENO WITHIN REACH.
--- NOTE | 2017-06-24 13:53 | NUR ---
pt resting, offers no new complaints, vs remain stable, tele continues reading SB SR rate 55-70, BP stable, call johnston within reach, will continue to monitor.
--- NOTE | 2017-06-24 14:06 | NUR ---
portable phone provided to pt per her request, call johnston within reach, no changes intelemetry, will continue to monitor.
--- NOTE | 2017-06-24 15:32 | NUR ---
PT RESTING IN BED, DOZES INTERMITTENLY, OFFERS NO NEW COMPLAINTSX, CONTINUES TO DENY CHEST PAIN, CALL BUENO WITHIIN JEANCARLOS, WILL CONTINUE TO MONITOR.
--- NOTE | 2017-06-24 15:58 | NUR ---
PT INSISTED ON USING BATHROOM, EDUCATED REAGRDING REASON FOR WANTING PTS TO USE BEDSIDE COMMODE, PT REMAINS INSISTANT ON USING BATHROOM, MIN ASSIST AMBULATED TO BATHROOM, SPOUSE AT BEDSIDE. ENCOURAGED TO CALL FOR ASSIST WHEN DONE.
--- NOTE | 2017-06-24 16:24 | NUR ---
pt provided printed informtaion about atrial fibrillation and lovenox per pt requested, also verbal information about disease process discussed with appropriate questions asked, call johnston within reach. Spouse remains at bedside
--- NOTE | 2017-06-24 17:44 | NUR ---
pt oob repositioned self for comfort after partial linen changed related to spilled drink, pt tolerates activity well and denies any complaints, call johnston within reach and set up assist provided for pm meal, will continue to monitor.
--- NOTE | 2017-06-24 19:20 | NUR ---
PT IN BED A/O X3, RESPIRATIONS EVEN AND UNLABORED ON RA. TELE READING SR 60'S-70'S. DENIES PAIN OR DISCOMFORT. PO FLUIDS IN REACH. ENCOURAGED TO USE CALL LIGHT FOR ASSISTANCE, WILL CONTINUE TO MONITOR.
--- NOTE | 2017-06-24 21:30 | NUR ---
RESTING IN BED, TELE MONITOR READING SB 55, CALL LIGHT IN REACH.
[2017-06-25] VITALS (7 sets, daily range): BP systolic 94–153; BP diastolic 47–84
--- NOTE | 2017-06-25 | NUR ---
RESTING WITH EYES CLOSED, RESPIRATIONS EVEN AND UNLABORED, RESPONDS EASILY TO VERBAL COMMAND. LOVENOX ADMINISTERED TO LEFT ABDOMEN SQ, TOLERATED WELL. VOICES NO CONCERNS. CALL LIGHT IN REACH.
--- NOTE | 2017-06-25 02:30 | NUR ---
RESTING IN BED WITH EYES CLOSED, RESPIRATIONS EVEN AND UNLABORED ON RA, TELE READING SB 58. CALL LIGHT IN REACH.
--- NOTE | 2017-06-25 05:31 | NUR ---
C/O JAW PAIN ULTRAM 50MG PO PROVIDED PER MAR AT THIS TIME. NO CHANGE IN TELE READING, SB 57. DENIES CHEST PAIN, STATES FEELING UNCOMFORTABLE.
--- NOTE | 2017-06-25 07:20 | NUR ---
PT SLEEPING, AROUSES EASILY TO VERBAL STIMULI, ALERT AND ORIENTED, RESTING IN BED, AM ASSESSMENT COMPLETED, SEE INTERVENTIONS, PT DENIES ANY COMPLAINTS, TELE READING SB-SR 50-70'S LUNGS CLAAR WITH NO SOB OR DISTRESS NOTED ABD SOFT AND BS ACTIVE. MOVES ALL EXTREMETIES WELL TRACE PEDAL EDEMA NOTED, IV ACCESSES INTACT SALINE LOCKED, COMFORT MEASURES PROVIDED SAFETY MEASURES REINFORCED, WILL CONTINUE TO MONITOR. CALL BUENO WITHIN REACH
--- NOTE | 2017-06-25 08:00 | NUR ---
SET UP ASSIST PROVIDED FOR AM MEAL, CALL BUENO WITHIN REACH
[2017-06-25 08:44] LABS: HEMATOCRIT 37.2 % (37.0-47.0); MEAN CELL VOLUME 92.8 fL CALC (80.0-100.0); MEAN CORPUSCULAR HGB 29.9 pG CALC (26.0-32.0); MEAN CORPUSCULAR HGB CONC 32.3 g/L CALC (32.0-36.0); RED BLOOD COUNT 4.01 mill/uL (4.20-5.60); RED CELL DISTRI WIDTH 14.6 % (11.5-15.5)
--- NOTE | 2017-06-25 08:53 | NUR ---
PT FOUND OOB AN AMBULATED TO BATHROOM WITH FAIRLY STEADY GAIT, SAFEY MEASURES REINFORCED, PT STATES "I COULDN'T WAIT, I'M SORRY" BACK TO BED WITH SAME GATI AND ALL MONITORING EQUIPMENT REAPPLIED, CALL BUENO WITHIN REACH
[2017-06-25 09:06] LABS: BUN 13 mg/dL (8-23); BUN/CREATININE RATIO 13 (12-20 (CALC)); CARBON DIOXIDE 25 mmol/l (22-30); CHLORIDE 107 mmol/l (95-108); GFR 54 ML/MIN (>=60 (CALC)); GFR FOR AFR.AMER. > 60 ML/MIN (>=60 (CALC)); POTASSIUM 4.2 mmol/l (3.5-5.1)
[2017-06-25 09:15] LABS: ANION GAP 8 (6-22 (CALC)); MAGNESIUM 1.9 mg/dL (1.6-2.3); SODIUM 136 mmol/l (137-146)
--- NOTE | 2017-06-25 09:15 | NUR ---
YONG ROLL CHANGER IN TO SEE PT, PLAN OF CARE DISCUSSED.
--- NOTE | 2017-06-25 09:26 | NUR ---
PT STARTED NEW ABT, EDUCATIONAL INFORMATION PRINTED AND DISCUSSED, INCLDUING REASON FOR ADMINISTRATION, EXPECTATIONS AND POSSIBLE SXIDE EFFECTS, ALL QUESTIONS ANSWERED, CALL BUENO WITHIN REACH, RW 20G IV ACCESS FLUSHED WITH GOOD ASPIRATE NOTED AND ABT STARTED ORDERED WILL CONTINUE TO MONITOR, CALL BUENO WITHIN REACH
--- NOTE | 2017-06-25 09:54 | NUR ---
PT ASSISSTED OOB TO AMBULATE TO BATHROOM, CALL BUENO WITHIN REACH, IV ABT CONTINUE W/O INCIDENT, WILL CONTINUE TO MONITOR.
--- NOTE | 2017-06-25 10:27 | NUR ---
PT BACK FROM BATHROOM AND REPOSITIONED SELF FOR COMFORT, STATES SHE IS HAVING SOME MILD DIARRHEA, PT FLUSHED, AND NOT WITNESSED BY THIS NURSE, CALL BUENO WITHIN REACH.
--- NOTE | 2017-06-25 11:11 | NUR ---
IN TO SEE PATIENT, PLAN OF CARE DISCUSSED.
--- NOTE | 2017-06-25 11:27 | NUR ---
SET UP ASSIST PROVIDED FOR AFTERNOON MEAL, EDUCATED REGARDING PLANNED DISCHARGE TODAY, ALL QUESTIONS ANSWERED, AWAITING ORDERS FROM YONG XIONG, WILL CONTINUE TO MONITOR
[2017-06-25] MEDS ORDERED: CIPROFLOXACN500 MG PO (11:37)
[2017-06-25] MEDS ORDERED: LOPRESSOR 550 MG/TAB PO (11:37)
[2017-06-25] MEDS ORDERED: ELIQUIS5 MG PO (11:39)
--- NOTE | 2017-06-25 12:38 | NUR ---
PT EDUCATED REGARDING DISCHARGE, PLANNED CARDIAC CATH AT [facility] ON 06/29/17, INSTRUCTIONS FOR PRE OP COVERED AND PT VERBALIZES UNDERSTANDING, IV SITES REMOVED INTACT AND PT CONTACTING FOR TRANSPORTATION.
--- NOTE | 2017-06-25 12:44 | NUR ---
ALL MONITORING EQUIPMETN REMOVED AND PT GETTING DRESSED, SPOUSE EN ROUTE TO PICK PT UP.
--- NOTE | 2017-06-25 13:15 | NUR ---
Discharge instructions given. Patient verbalizes understanding of same. Discharged in stable condition via Wheelchair to Home with family. All belongings sent with pt. SCRIPTS AND INSTRUCTIONS SENT WITH PATIENT
== END 2017-06-25 13:15 | disposition home or self-care (01) | DRG 309 ==
LOC: ICU 12:03
PROVIDERS: Nurse Practitioner; Nurse Practitioner Family; ADMIT Internal Medicine; ATTEND Internal Medicine
DX: I48.0 Paroxysmal atrial fibrillation (principal); N39.0 Urinary tract infection, site not specified; E11.22 Type 2 diabetes mellitus with diabetic chronic kidney disease; G62.9 Polyneuropathy, unspecified; I12.9 Hypertensive chronic kidney disease with stage 1 through stage 4 chronic kidney disease, or unspecified chronic kidney disease; N18.3 Chronic kidney disease, stage 3 (moderate); D50.9 Iron deficiency anemia, unspecified; E03.9 Hypothyroidism, unspecified; E78.5 Hyperlipidemia, unspecified; I25.119 Atherosclerotic heart disease of native coronary artery with unspecified angina pectoris; F41.9 Anxiety disorder, unspecified; F32.9 Major depressive disorder, single episode, unspecified; K21.9 Gastro-esophageal reflux disease without esophagitis; J98.4 Other disorders of lung; I25.2 Old myocardial infarction; B96.89 Other specified bacterial agents as the cause of diseases classified elsewhere; Z98.84 Bariatric surgery status; Z95.5 Presence of coronary angioplasty implant and graft; Z87.442 Personal history of urinary calculi
CPT/HCPCS: J0692; J1650; Q9967

== ENCOUNTER 2018-04-24 03:54 | Emergency (ER) | payer MEDICARE, OTHER ==
[~2018-04-24] VITALS: Ht 172.7 cm; Wt 89.5 kg
[~2018-04-24 03:54] MED LIST changes: +CELEBREX100 M1 PO; +ELIQUIS5 MG PO; +LEVOTHYROXIN50 MCG PO; +LOPRESSOR 550 MG/TAB PO; +LOSARTAN POT25 MG PO
[2018-04-24 04:41] LABS: HEMATOCRIT 34.7 % (37.0-47.0); HEMOGLOBIN 10.3 g/dl (12.0-16.0); IMMATURE GRANULOCYTES 0.3 % (0.0-5.0); MEAN CORPUSCULAR HGB 27.3 pG CALC (26.0-32.0); MEAN CORPUSCULAR HGB CONC 29.7 g/L CALC (32.0-36.0); NEUT# 3.04 thou/uL (2.00-7.15); RED BLOOD COUNT 3.77 mill/uL (4.20-5.60); RED CELL DISTRI WIDTH 15.7 % (11.5-15.5)
[2018-04-24] MEDS ORDERED: CYMBALTA30 MG PO (04:46)
[2018-04-24] MEDS ORDERED: LIPITOR40 M1 PO (04:47)
[2018-04-24] MEDS ORDERED: LORATADINE10 M1 PO (04:48)
[2018-04-24] MEDS ORDERED: GABAPENTIN100 MG PO (04:48)
[2018-04-24] MEDS ORDERED: PROTONIX40 M2 PO (04:49)
[2018-04-24 04:54] LABS: ALBUMIN 3.3 g/dL (3.2-5.0); ALKALINE PHOSPHATASE 106 u/l (38-126); ANION GAP 14 (6-22 (CALC)); BILIRUBIN, TOTAL 0.5 mg/dL (0.0-1.4); BUN 18 mg/dL (8-23); BUN/CREATININE RATIO 13 (12-20 (CALC)); CARBON DIOXIDE 21 mmol/l (22-30); CHLORIDE 107 mmol/l (95-108); CREATININE 1.3 mg/dL (0.5-1.0); ETHYL ALCOHOL < 10 mg/dl (0-30); GFR 40 ML/MIN (>=60 (CALC)); GFR FOR AFR.AMER. 48 ML/MIN (>=60 (CALC)); POTASSIUM 3.9 mmol/l (3.5-5.1); SGOT/AST 64 u/l (9-36); SODIUM 139 mmol/l (137-146); TOTAL PROTEIN 6.4 g/dL (6.3-8.2)
[2018-04-24 05:02] LABS: ACT PARTIAL THROMBO TIME 29.2 SECONDS (20.0-32.5); PROTHROMBIN TIME 10.9 SECONDS (9.0-12.5)
[2018-04-24 05:12] LABS: MYOGLOBIN 97 ng/mL (0 - 62)
[2018-04-24] MEDS ORDERED: LASIX 40 MG40 MG/TAB PO (05:35)
[2018-04-24 06:54] LABS: URINE BILIRUBIN - DIPSTICK NEGATIVE (NEGATIVE); URINE BLOOD DIPSTICK TRACE-LYSED (NEGATIVE); URINE COLOR YELLOW; URINE GLUCOSE - DIPSTICK NEGATIVE (NEGATIVE); URINE KETONE NEGATIVE (NEGATIVE); URINE PH 5.5 (4.5-8.0); URINE PROTEIN - DIPSTICK NEGATIVE (NEG-TRACE); URINE SPECIFIC GRAVITY 1.015; URINE UROBILINOGEN - DIPSTICK 0.2 E.U./dL (0.2)
[2018-04-24 06:57] LABS: URINE LEUK ESTERASE MODERATE (NEGATIVE); URINE NITRITE - DIPSTICK POSITIVE (Negative)
[2018-04-24 06:59] LABS: BARBITURATES NEGATIVE (NEGATIVE); COCAINE NEGATIVE (NEGATIVE); METHADONE NEGATIVE (NEGATIVE); OXCYCODONE NEGATIVE (NEGATIVE); TETRAHYDROCANNABIONOL NEGATIVE (NEGATIVE); TRICYLIC ANTIDEPRESSANTS POSITIVE (NEGATIVE)
[2018-04-24 07:00] LABS: URINE BACTERIA MODERATE hpf; URINE SQUAMOUS EPITHELIAL CELL FEW EPI/hpf (0-FEW); URINE WBC >100 WBC/hpf (0-5)
[2018-04-24 07:53] VITALS: BP 115/58
== END 2018-04-24 07:53 | disposition short-term general hospital (02) ==
LOC: ED 03:54
PROVIDERS: Emergency Medicine
DX: S72.102A Unspecified trochanteric fracture of left femur, initial encounter for closed fracture (principal); R55 Syncope and collapse; I10 Essential (primary) hypertension; E11.9 Type 2 diabetes mellitus without complications; W18.39XA Other fall on same level, initial encounter; Y92.009 Unspecified place in unspecified non-institutional (private) residence as the place of occurrence of the external cause; Z86.73 Personal history of transient ischemic attack (TIA), and cerebral infarction without residual deficits; R82.71 Bacteriuria

== ENCOUNTER 2018-05-21 17:54 | Emergency (ER) | payer MEDICARE, OTHER ==
[~2018-05-21] VITALS: Ht 172.7 cm; Wt 86.4 kg
[~2018-05-21 17:54] MED LIST changes: +CYMBALTA30 MG PO; +GABAPENTIN100 MG PO; +LASIX 40 MG40 MG/TAB PO; +LIPITOR40 M1 PO; +LORATADINE10 M1 PO
[2018-05-21 18:58] LABS: IMMATURE GRANULOCYTES 0.3 % (0.0-5.0); MEAN CELL VOLUME 95.7 fL CALC (80.0-100.0); MEAN CORPUSCULAR HGB 30.5 pG CALC (26.0-32.0); MEAN CORPUSCULAR HGB CONC 31.8 g/L CALC (32.0-36.0); NEUT# 3.45 thou/uL (2.00-7.15); RED BLOOD COUNT 4.4 mill/uL (4.20-5.60); RED CELL DISTRI WIDTH 17.4 % (11.5-15.5)
[2018-05-21 19:01] LABS: HEMATOCRIT 42.1 % (37.0-47.0); HEMOGLOBIN 13.4 g/dl (12.0-16.0)
[2018-05-21 19:32] LABS: AMYLASE 51 u/l (30-110); ANION GAP 17 (6-22 (CALC)); BUN 12 mg/dL (8-23); BUN/CREATININE RATIO 12 (12-20 (CALC)); CARBON DIOXIDE 23 mmol/l (22-30); CHLORIDE 103 mmol/l (95-108); GFR 54 ML/MIN (>=60 (CALC)); GFR FOR AFR.AMER. > 60 ML/MIN (>=60 (CALC)); LIPASE 96 u/l (23-300); POTASSIUM 4.2 mmol/l (3.5-5.1); SGOT/AST 35 u/l (9-36); SODIUM 138 mmol/l (137-146); TOTAL PROTEIN 7.4 g/dL (6.3-8.2)
[2018-05-21 19:34] LABS: ALKALINE PHOSPHATASE 271 u/l (38-126)
[2018-05-21] MEDS ORDERED: K-TABS10 MEQ PO (20:39)
[2018-05-21] MEDS ORDERED: LORTAB 5/3255 MG PO (20:40)
[2018-05-21 21:01] LABS: URINE BILIRUBIN - DIPSTICK NEGATIVE (NEGATIVE); URINE BLOOD DIPSTICK NEGATIVE (NEGATIVE); URINE COLOR YELLOW; URINE GLUCOSE - DIPSTICK NEGATIVE (NEGATIVE); URINE KETONE NEGATIVE (NEGATIVE); URINE LEUK ESTERASE NEGATIVE (NEGATIVE); URINE NITRITE - DIPSTICK NEGATIVE (Negative); URINE PROTEIN - DIPSTICK NEGATIVE (NEG-TRACE); URINE SPECIFIC GRAVITY <=1.005; URINE UROBILINOGEN - DIPSTICK 0.2 E.U./dL (0.2)
[2018-05-21] MEDS ORDERED: ZOFRAN ODT4 MG PO (22:15)
[2018-05-21] MEDS ORDERED: PROTONIX40 MG PO (22:15)
[2018-05-21 22:50] VITALS: BP 155/70
== END 2018-05-21 23:02 | disposition home or self-care (01) ==
LOC: ED 17:54
PROVIDERS: Emergency Medicine
DX: R10.84 Generalized abdominal pain (principal); E11.9 Type 2 diabetes mellitus without complications; I10 Essential (primary) hypertension; I25.10 Atherosclerotic heart disease of native coronary artery without angina pectoris; I25.2 Old myocardial infarction; Z95.5 Presence of coronary angioplasty implant and graft
CPT/HCPCS: Q9967; S0164

== ENCOUNTER 2020-08-15 08:38 | Day surgery (SDC) | payer MEDICARE, OTHER ==
[~2020-08-15 08:38] MED LIST changes: +APPLE CIDE1 PO; +B121000 MC1; +BIOTIN EXTR10000 MCG PO; +CVS MELATONIN PO; +ELIQUIS2.5 MG PO; +K-TABS10 MEQ PO; +LEG CRAMPS1 TAB PO; +PROTONIX40 MG PO; +TRULICITY0.75 MG/0.; +[UNRECOGNIZED DRUG - REMARK] PO
[2020-08-15 11:24] VITALS: BP 155/69
--- NOTE | 2020-08-20 12:44 | NUR ---
PER PHYSICIAN, PATIENT NOTIFIED OF NORMAL EGD REPORT WRITTEN PER DR. PACE. PATIENT VERBALIZED UNDERSTANDING, NO CONCERNS AT TIME OF CALL, STATES PROCEDURE WENT WELL, NO PROBLEMS, NO ISSUES. ADVISED TO FOLLOW UP WITH PCP AND NOTIFY OUR OFFICE IF NEEDED. REPORT FORWARDED TO PRIMARY CARE PHYSICIAN FOR CONTINUITY OF CARE.
== END 2020-08-15 11:12 | disposition home or self-care (01) ==
LOC: ENDO 08:38 → ORM 12:45 → ENDO 12:45
PROVIDERS: ATTEND Surgery
PROC: 0DJD8ZZ Inspection of Lower Intestinal Tract, Via Natural or Artificial Opening Endoscopic (ICD-10-PCS; principal; 2020-08-15)
PROC: 0DJ08ZZ Inspection of Upper Intestinal Tract, Via Natural or Artificial Opening Endoscopic (ICD-10-PCS; 2020-08-15)
DX: D64.9 Anemia, unspecified (principal); K57.30 Diverticulosis of large intestine without perforation or abscess without bleeding; K64.8 Other hemorrhoids; I48.91 Unspecified atrial fibrillation; I10 Essential (primary) hypertension; I25.10 Atherosclerotic heart disease of native coronary artery without angina pectoris; E03.9 Hypothyroidism, unspecified; Z79.01 Long term (current) use of anticoagulants; Z98.84 Bariatric surgery status

== ENCOUNTER 2021-03-17 09:44 | Observation (INO) | payer MEDICARE, OTHER ==
[~2021-03-17] VITALS: Ht 172.7 cm; Wt 78.0 kg
--- NOTE | 2021-03-17 10:13 | NUR ---
PT ESCORTED TO ROOM 4 FOR EVALUATION OF RIGHT PAIN SP FALL TWO WEEKS AGO 02/24. PT HAD WATCHMEN PROCEDURE ON 02/25 AT [facility] AND WAS READMITTED FOR POST OP INFECTION AND COVID. PT RECENTLY DC AND HAS CONTINUED HIP PAIN/LOWER BACK PAIN
[2021-03-17 10:58] LABS: HEMATOCRIT 40.2 % (37.0-47.0); HEMOGLOBIN 12.6 g/dl (12.0-16.0); IMMATURE GRANULOCYTES 0.4 % (0.0-5.0); MEAN CELL VOLUME 100.2 fL CALC (80.0-100.0); MEAN CORPUSCULAR HGB 31.4 pG CALC (26.0-32.0); MEAN CORPUSCULAR HGB CONC 31.3 g/dL CAL (32.0-36.0); NEUT# 3.72 thou/uL (2.00-7.15); RED BLOOD COUNT 4.01 mill/uL (4.20-5.60)
[2021-03-17 11:10] LABS: ALBUMIN 3.3 g/dL (3.2-5.0); BILIRUBIN, TOTAL 0.9 mg/dL (0.0-1.4); CREATININE 1.2 mg/dL (0.5-1.0); POTASSIUM 4.2 mmol/l (3.5-5.1); TOTAL PROTEIN 6.8 g/dL (6.3-8.2)
[2021-03-17 15:15] VITALS: BP 137/58
== END 2021-03-17 15:15 | disposition home or self-care (01) ==
LOC: ED 09:44 → ED-I 13:41 → ED 13:58 → ED-I 13:59
PROVIDERS: Family Medicine; ADMIT Hospitalist; ATTEND Hospitalist
DX: R10.31 Right lower quadrant pain (principal); R07.81 Pleurodynia; S32.030A Wedge compression fracture of third lumbar vertebra, initial encounter for closed fracture; U07.1 COVID-19; I10 Essential (primary) hypertension; I25.10 Atherosclerotic heart disease of native coronary artery without angina pectoris; I48.91 Unspecified atrial fibrillation; E78.5 Hyperlipidemia, unspecified; E03.9 Hypothyroidism, unspecified; F32.A Depression, unspecified; F41.9 Anxiety disorder, unspecified; I25.2 Old myocardial infarction; W19.XXXA Unspecified fall, initial encounter; Y92.009 Unspecified place in unspecified non-institutional (private) residence as the place of occurrence of the external cause; Z95.5 Presence of coronary angioplasty implant and graft; Z98.84 Bariatric surgery status
CPT/HCPCS: Q9967

== ENCOUNTER 2021-04-04 11:21 | Emergency (ER) | payer MEDICARE, OTHER ==
[~2021-04-04] VITALS: Ht 172.7 cm; Wt 80.0 kg
[2021-04-04 14:50] LABS: HEMATOCRIT 35.5 % (37.0-47.0); HEMOGLOBIN 11.4 g/dl (12.0-16.0); IMMATURE GRANULOCYTES 0.2 % (0.0-5.0); MEAN CELL VOLUME 98.6 fL CALC (80.0-100.0); MEAN CORPUSCULAR HGB 31.7 pG CALC (26.0-32.0); MEAN CORPUSCULAR HGB CONC 32.1 g/dL CAL (32.0-36.0); NEUT# 2.41 thou/uL (2.00-7.15); RED BLOOD COUNT 3.6 mill/uL (4.20-5.60); RED CELL DISTRI WIDTH 13.2 % (11.5-15.5)
[2021-04-04 14:59] LABS: ALBUMIN 3.3 g/dL (3.2-5.0); BILIRUBIN, TOTAL 0.9 mg/dL (0.0-1.4); CREATININE 1.1 mg/dL (0.5-1.0); TOTAL PROTEIN 6.9 g/dL (6.3-8.2)
[2021-04-04] MEDS ORDERED: ULTRAM50 M1 PO (16:26)
[2021-04-04 17:05] VITALS: BP 205/110
== END 2021-04-04 17:05 | disposition home or self-care (01) ==
LOC: ED 11:21
PROVIDERS: Family Medicine
DX: R10.31 Right lower quadrant pain (principal); I10 Essential (primary) hypertension; E03.9 Hypothyroidism, unspecified; I25.10 Atherosclerotic heart disease of native coronary artery without angina pectoris; W19.XXXD Unspecified fall, subsequent encounter; S32.039D Unspecified fracture of third lumbar vertebra, subsequent encounter for fracture with routine healing; Z98.84 Bariatric surgery status; Z95.5 Presence of coronary angioplasty implant and graft; Z98.890 Other specified postprocedural states

== ENCOUNTER 2021-05-08 01:05 | Emergency (ER) | payer MEDICARE, OTHER ==
[2021-05-08] VITALS (9 sets, daily range): BP systolic 53–125; BP diastolic 31–65
[~2021-05-08] VITALS: Ht 175.3 cm; Wt 68.0 kg
[2021-05-08 01:38] LABS: HEMATOCRIT 42.6 % (37.0-47.0); HEMOGLOBIN 13.4 g/dl (12.0-16.0); MEAN CELL VOLUME 98.6 fL CALC (80.0-100.0); MEAN CORPUSCULAR HGB CONC 31.5 g/dL CAL (32.0-36.0); NEUT# 4.94 thou/uL (2.00-7.15); RED BLOOD COUNT 4.32 mill/uL (4.20-5.60); RED CELL DISTRI WIDTH 12.8 % (11.5-15.5)
[2021-05-08 01:54] LABS: ALBUMIN 3.2 g/dL (3.2-5.0); BILIRUBIN, TOTAL 0.7 mg/dL (0.0-1.4); CREATININE 1.8 mg/dL (0.5-1.0); POTASSIUM 3.7 mmol/l (3.5-5.1); TOTAL PROTEIN 6.2 g/dL (6.3-8.2)
[2021-05-08 03:47] LABS: URINE BILIRUBIN - DIPSTICK NEGATIVE (NEGATIVE); URINE BLOOD DIPSTICK NEGATIVE (NEGATIVE); URINE COLOR YELLOW; URINE GLUCOSE - DIPSTICK NEGATIVE (NEGATIVE); URINE KETONE NEGATIVE (NEGATIVE); URINE LEUK ESTERASE NEGATIVE (NEGATIVE); URINE NITRITE - DIPSTICK NEGATIVE (Negative); URINE PH 5.5 (4.5-8.0); URINE PROTEIN - DIPSTICK NEGATIVE (NEG-TRACE); URINE SPECIFIC GRAVITY 1.025; URINE UROBILINOGEN - DIPSTICK 0.2 E.U./dL (0.2)
[2021-05-08] MEDS ORDERED: GABAPENTIN100 MG PO (04:18)
== END 2021-05-08 05:10 | disposition short-term general hospital (02) ==
LOC: ED 01:05
PROVIDERS: Family Medicine
PROC: 0T9B70Z Drainage of Bladder with Drainage Device, Via Natural or Artificial Opening (ICD-10-PCS; principal; 2021-05-08)
DX: S72.141A Displaced intertrochanteric fracture of right femur, initial encounter for closed fracture (principal); D64.9 Anemia, unspecified; I12.9 Hypertensive chronic kidney disease with stage 1 through stage 4 chronic kidney disease, or unspecified chronic kidney disease; N18.30 Chronic kidney disease, stage 3 unspecified; E03.9 Hypothyroidism, unspecified; I25.10 Atherosclerotic heart disease of native coronary artery without angina pectoris; W19.XXXA Unspecified fall, initial encounter; Y92.009 Unspecified place in unspecified non-institutional (private) residence as the place of occurrence of the external cause

== ENCOUNTER 2021-10-27 14:07 | Emergency (ER) | payer MEDICARE, OTHER ==
[~2021-10-27] VITALS: Ht 175.3 cm; Wt 78.0 kg
[2021-10-27 16:00] LABS: HEMATOCRIT 38.7 % (37.0-47.0); HEMOGLOBIN 12.6 g/dl (12.0-16.0); IMMATURE GRANULOCYTES 0.5 % (0.0-5.0); MEAN CELL VOLUME 93.7 fL CALC (80.0-100.0); MEAN CORPUSCULAR HGB 30.5 pG CALC (26.0-32.0); MEAN CORPUSCULAR HGB CONC 32.6 g/dL CAL (32.0-36.0); NEUT# 5.1 thou/uL (2.00-7.15); RED BLOOD COUNT 4.13 mill/uL (4.20-5.60); RED CELL DISTRI WIDTH 15.2 % (11.5-15.5)
[2021-10-27 16:10] LABS: ALBUMIN 3.6 g/dL (3.2-5.0); ALKALINE PHOSPHATASE 136 u/l (38-126); ANION GAP 12 (6-22 (CALC)); BILIRUBIN, TOTAL 0.6 mg/dL (0.0-1.4); BUN 18 mg/dL (8-23); BUN/CREATININE RATIO 19 (12-20 (CALC)); CARBON DIOXIDE 22 mmol/l (22-30); CHLORIDE 107 mmol/l (95-108); CREATININE 0.9 mg/dL (0.5-1.0); GFR FOR AFR.AMER. > 60 ML/MIN (>=60 (CALC)); GFR OTHER RACES 60 ML/MIN (>=60 (CALC)); LIPASE 33 u/l (23-300); SGOT/AST 54 u/l (9-36); SODIUM 136 mmol/l (137-146); TOTAL PROTEIN 6.8 g/dL (6.3-8.2)
[2021-10-27 16:18] LABS: MYOGLOBIN 31 ng/mL (0 - 62)
[2021-10-27] MEDS ORDERED: METHOCARBAMOL500 MG PO (18:09)
[2021-10-27] MEDS ORDERED: MEDDOSEPAK PO (18:09)
[2021-10-27] MEDS ORDERED: HYDROCO/APAP1 TA9 PO (18:09)
[2021-10-27 18:18] VITALS: BP 155/79
== END 2021-10-27 18:33 | disposition home or self-care (01) ==
LOC: ED 14:07 → ED-I 17:47 → ED 18:33
PROVIDERS: Nurse Practitioner
DX: M25.551 Pain in right hip (principal); I10 Essential (primary) hypertension; E03.9 Hypothyroidism, unspecified; I25.10 Atherosclerotic heart disease of native coronary artery without angina pectoris; I48.91 Unspecified atrial fibrillation; W19.XXXA Unspecified fall, initial encounter; Y92.009 Unspecified place in unspecified non-institutional (private) residence as the place of occurrence of the external cause; Z95.818 Presence of other cardiac implants and grafts; Z87.81 Personal history of (healed) traumatic fracture

== ENCOUNTER 2022-08-03 18:14 | Inpatient (IN) | payer MEDICARE, OTHER ==
[~2022-08-03] VITALS: Ht 175.3 cm; Wt 71.0 kg
[2022-08-03] VITALS (13 sets, daily range): BP systolic 122–209; BP diastolic 57–109
[~2022-08-03 18:14] MED LIST changes: +HYDROCO/APAP1 TA9 PO; +MEDDOSEPAK PO; +METHOCARBAMOL500 MG PO
[2022-08-03] MEDS ORDERED: ESCITALOPRAM OX20 MG PO (18:37)
[2022-08-03 19:56] LABS: BASO% 0.6 % (0-3); EOS% 0.9 % (0-8); HEMATOCRIT 43.2 % (37.0-47.0); HEMOGLOBIN 13.8 g/dl (12.0-16.0); IMMATURE GRANULOCYTES 0.2 % (0.0-5.0); LYMPH% 18.2 % (15-41); MEAN CELL VOLUME 93.1 fL CALC (80.0-100.0); MEAN CORPUSCULAR HGB 29.7 pG CALC (26.0-32.0); MEAN CORPUSCULAR HGB CONC 31.9 g/dL CAL (32.0-36.0); NEUT# 6.4 thou/uL (2.00-7.15); NEUT% 75.1 % (42-76); RED BLOOD COUNT 4.64 mill/uL (4.20-5.60); RED CELL DISTRI WIDTH 13.1 % (11.5-15.5)
[2022-08-03 20:05] LABS: ALBUMIN 3.3 g/dL (3.2-5.0); ALKALINE PHOSPHATASE 162 u/l (38-126); AMYLASE 57 u/l (30-110); ANION GAP 13 (6-22 (CALC)); BILIRUBIN, TOTAL 0.6 mg/dL (0.02-1.3); BUN 11 mg/dL (8-23); BUN/CREATININE RATIO 13 (12-20 (CALC)); CARBON DIOXIDE 25 mmol/l (22-30); CHLORIDE 103 mmol/l (95-108); CREATININE 0.9 mg/dL (0.5-1.0); GFR FOR AFR.AMER. > 60 ML/MIN (>=60 (CALC)); GFR OTHER RACES 60 ML/MIN (>=60 (CALC)); LIPASE 51 u/l (23-300); POTASSIUM 4.2 mmol/l (3.5-5.1); SGOT/AST 44 u/l (9-36); SODIUM 137 mmol/l (137-146); TOTAL PROTEIN 7.1 g/dL (6.3-8.2)
[2022-08-04] VITALS (46 sets, daily range): BP systolic 92–150; BP diastolic 46–83
[2022-08-05] VITALS (30 sets, daily range): BP systolic 90–140; BP diastolic 45–74
[2022-08-05 04:39] LABS: HEMATOCRIT 38.2 % (37.0-47.0); IMMATURE GRANULOCYTES 0.2 % (0.0-5.0); LYMPH% 8.7 % (15-41); MEAN CELL VOLUME 95.7 fL CALC (80.0-100.0); MEAN CORPUSCULAR HGB 30.1 pG CALC (26.0-32.0); MEAN CORPUSCULAR HGB CONC 31.4 g/dL CAL (32.0-36.0); NEUT# 10.27 thou/uL (2.00-7.15); NEUT% 84.1 % (42-76); RED BLOOD COUNT 3.99 mill/uL (4.20-5.60); RED CELL DISTRI WIDTH 13.2 % (11.5-15.5)
[2022-08-05 05:03] LABS: BILIRUBIN, TOTAL 0.4 mg/dL (0.02-1.3); CREATININE 1.1 mg/dL (0.5-1.0); POTASSIUM 4.6 mmol/l (3.5-5.1)
[2022-08-05 05:04] LABS: ALBUMIN 2.3 g/dL (3.2-5.0); TOTAL PROTEIN 5.1 g/dL (6.3-8.2)
[2022-08-06] VITALS (93 sets, daily range): BP systolic 70–169; BP diastolic 37–100
[2022-08-06 06:05] LABS: HEMOGLOBIN 10.7 g/dl (12.0-16.0); MEAN CELL VOLUME 96.6 fL CALC (80.0-100.0); MEAN CORPUSCULAR HGB 30.4 pG CALC (26.0-32.0); MEAN CORPUSCULAR HGB CONC 31.5 g/dL CAL (32.0-36.0); RED BLOOD COUNT 3.52 mill/uL (4.20-5.60); RED CELL DISTRI WIDTH 13.3 % (11.5-15.5)
[2022-08-06 06:24] LABS: ALBUMIN 2.1 g/dL (3.2-5.0); ALKALINE PHOSPHATASE 71 u/l (38-126); ANION GAP 6 (6-22 (CALC)); BILIRUBIN, TOTAL 0.4 mg/dL (0.02-1.3); BUN 15 mg/dL (8-23); BUN/CREATININE RATIO 16 (12-20 (CALC)); CARBON DIOXIDE 24 mmol/l (22-30); CHLORIDE 105 mmol/l (95-108); GFR FOR AFR.AMER. > 60 ML/MIN (>=60 (CALC)); GFR OTHER RACES 53 ML/MIN (>=60 (CALC)); MAGNESIUM 1.6 mg/dL (1.6-2.3); SGOT/AST 27 u/l (9-36); SODIUM 131 mmol/l (137-146); TOTAL PROTEIN 4.5 g/dL (6.3-8.2)
[2022-08-07] VITALS (25 sets, daily range): BP systolic 102–164; BP diastolic 48–115
[2022-08-07 06:12] LABS: HEMATOCRIT 32.4 % (37.0-47.0); HEMOGLOBIN 10.4 g/dl (12.0-16.0); MEAN CELL VOLUME 94.5 fL CALC (80.0-100.0); MEAN CORPUSCULAR HGB 30.3 pG CALC (26.0-32.0); MEAN CORPUSCULAR HGB CONC 32.1 g/dL CAL (32.0-36.0); RED BLOOD COUNT 3.43 mill/uL (4.20-5.60); RED CELL DISTRI WIDTH 12.9 % (11.5-15.5)
[2022-08-07 06:29] LABS: ALBUMIN 2.1 g/dL (3.2-5.0); ALKALINE PHOSPHATASE 81 u/l (38-126); ANION GAP 5 (6-22 (CALC)); BUN 12 mg/dL (8-23); BUN/CREATININE RATIO 13 (12-20 (CALC)); CARBON DIOXIDE 24 mmol/l (22-30); CHLORIDE 104 mmol/l (95-108); CREATININE 0.9 mg/dL (0.5-1.0); GFR FOR AFR.AMER. > 60 ML/MIN (>=60 (CALC)); GFR OTHER RACES 60 ML/MIN (>=60 (CALC)); MAGNESIUM 1.5 mg/dL (1.6-2.3); POTASSIUM 3.9 mmol/l (3.5-5.1); SGOT/AST 25 u/l (9-36); SODIUM 129 mmol/l (137-146); TOTAL PROTEIN 4.7 g/dL (6.3-8.2)
[2022-08-07 06:31] LABS: BILIRUBIN, TOTAL 0.6 mg/dL (0.02-1.3)
[2022-08-07] MEDS ORDERED: LOPRESSOR50 M1 PO (09:38)
[2022-08-08] VITALS (18 sets, daily range): BP systolic 98–159; BP diastolic 44–102
[2022-08-08 04:31] LABS: HEMATOCRIT 33.1 % (37.0-47.0); HEMOGLOBIN 10.6 g/dl (12.0-16.0); MEAN CELL VOLUME 93.8 fL CALC (80.0-100.0); RED BLOOD COUNT 3.53 mill/uL (4.20-5.60); RED CELL DISTRI WIDTH 12.9 % (11.5-15.5)
[2022-08-08 04:41] LABS: ALBUMIN 2.2 g/dL (3.2-5.0); ALKALINE PHOSPHATASE 81 u/l (38-126); ANION GAP 6 (6-22 (CALC)); BILIRUBIN, TOTAL 0.6 mg/dL (0.02-1.3); BUN 8 mg/dL (8-23); BUN/CREATININE RATIO 10 (12-20 (CALC)); CARBON DIOXIDE 22 mmol/l (22-30); CHLORIDE 106 mmol/l (95-108); CREATININE 0.8 mg/dL (0.5-1.0); GFR FOR AFR.AMER. > 60 ML/MIN (>=60 (CALC)); GFR OTHER RACES > 60 ML/MIN (>=60 (CALC)); MAGNESIUM 1.8 mg/dL (1.6-2.3); POTASSIUM 3.4 mmol/l (3.5-5.1); SGOT/AST 28 u/l (9-36); SODIUM 131 mmol/l (137-146); TOTAL PROTEIN 4.9 g/dL (6.3-8.2)
[2022-08-09] VITALS (7 sets, daily range): BP systolic 139–167; BP diastolic 64–79
[2022-08-09 03:24] LABS: URINE BILIRUBIN - DIPSTICK NEGATIVE (NEGATIVE); URINE BLOOD DIPSTICK TRACE-LYSED (NEGATIVE); URINE COLOR YELLOW; URINE GLUCOSE - DIPSTICK NEGATIVE (NEGATIVE); URINE KETONE NEGATIVE (NEGATIVE); URINE LEUK ESTERASE NEGATIVE (NEGATIVE); URINE PROTEIN - DIPSTICK NEGATIVE (NEG-TRACE); URINE SPECIFIC GRAVITY <=1.005; URINE UROBILINOGEN - DIPSTICK 0.2 E.U./dL (0.2)
[2022-08-09 03:30] LABS: URINE NITRITE - DIPSTICK NEGATIVE (Negative)
[2022-08-09 05:52] LABS: HEMATOCRIT 30.6 % (37.0-47.0); MEAN CELL VOLUME 92.2 fL CALC (80.0-100.0); MEAN CORPUSCULAR HGB 30.1 pG CALC (26.0-32.0); MEAN CORPUSCULAR HGB CONC 32.7 g/dL CAL (32.0-36.0); RED BLOOD COUNT 3.32 mill/uL (4.20-5.60); RED CELL DISTRI WIDTH 13.1 % (11.5-15.5)
[2022-08-09 05:58] LABS: ALBUMIN 1.9 g/dL (3.2-5.0); ALKALINE PHOSPHATASE 85 u/l (38-126); ANION GAP 6 (6-22 (CALC)); BUN 4 mg/dL (8-23); BUN/CREATININE RATIO 6 (12-20 (CALC)); CARBON DIOXIDE 25 mmol/l (22-30); CHLORIDE 106 mmol/l (95-108); CREATININE 0.8 mg/dL (0.5-1.0); GFR FOR AFR.AMER. > 60 ML/MIN (>=60 (CALC)); GFR OTHER RACES > 60 ML/MIN (>=60 (CALC)); MAGNESIUM 1.7 mg/dL (1.6-2.3); POTASSIUM 3.8 mmol/l (3.5-5.1); SGOT/AST 26 u/l (9-36); SODIUM 133 mmol/l (137-146); TOTAL PROTEIN 4.3 g/dL (6.3-8.2)
[2022-08-09 06:09] LABS: BILIRUBIN, TOTAL 0.9 mg/dL (0.02-1.3)
[2022-08-10 00:21] VITALS: BP 111/52
[2022-08-10 04:24] VITALS: BP 138/62
[2022-08-10 06:02] LABS: HEMATOCRIT 28.8 % (37.0-47.0); HEMOGLOBIN 9.3 g/dl (12.0-16.0); MEAN CORPUSCULAR HGB 29.7 pG CALC (26.0-32.0); MEAN CORPUSCULAR HGB CONC 32.3 g/dL CAL (32.0-36.0); RED BLOOD COUNT 3.13 mill/uL (4.20-5.60)
[2022-08-10 06:16] LABS: ALBUMIN 1.8 g/dL (3.2-5.0); ALKALINE PHOSPHATASE 82 u/l (38-126); ANION GAP 6 (6-22 (CALC)); BUN 4 mg/dL (8-23); BUN/CREATININE RATIO 6 (12-20 (CALC)); CARBON DIOXIDE 26 mmol/l (22-30); CHLORIDE 105 mmol/l (95-108); CREATININE 0.7 mg/dL (0.5-1.0); GFR FOR AFR.AMER. > 60 ML/MIN (>=60 (CALC)); GFR OTHER RACES > 60 ML/MIN (>=60 (CALC)); MAGNESIUM 1.8 mg/dL (1.6-2.3); POTASSIUM 3.8 mmol/l (3.5-5.1); SGOT/AST 21 u/l (9-36); SODIUM 134 mmol/l (137-146); TOTAL PROTEIN 4.1 g/dL (6.3-8.2)
[2022-08-10 06:23] LABS: BILIRUBIN, TOTAL 0.5 mg/dL (0.02-1.3)
[2022-08-10 07:03] VITALS: BP 124/57
[2022-08-10 09:13] VITALS: BP 127/63
[2022-08-10 11:24] VITALS: BP 128/54
[2022-08-10 11:25] VITALS: BP 128/54
== END 2022-08-10 16:25 | disposition home or self-care (01) | DRG 330 ==
LOC: ED 18:14 → MS2 21:48 → ICU 08-04 14:45 → MS2 08-05 13:45 → ICU 08-05 23:25 → MS2 08-08 14:39
PROVIDERS: Family Medicine; Internal Medicine; ADMIT Surgery; ATTEND Surgery
PROC: 0DB80ZZ Excision of Small Intestine, Open Approach (ICD-10-PCS; principal; 2022-08-04)
PROC: 0D180Z8 Bypass Small Intestine to Small Intestine, Open Approach (ICD-10-PCS; 2022-08-04)
PROC: 0DJD4ZZ Inspection of Lower Intestinal Tract, Percutaneous Endoscopic Approach (ICD-10-PCS; 2022-08-04)
PROC: 0W993ZZ Drainage of Right Pleural Cavity, Percutaneous Approach (ICD-10-PCS; 2022-08-04)
DX: K56.1 Intussusception (principal); J91.0 Malignant pleural effusion; K92.0 Hematemesis; J95.89 Other postprocedural complications and disorders of respiratory system, not elsewhere classified; K56.699 Other intestinal obstruction unspecified as to partial versus complete obstruction; I12.9 Hypertensive chronic kidney disease with stage 1 through stage 4 chronic kidney disease, or unspecified chronic kidney disease; N18.30 Chronic kidney disease, stage 3 unspecified; I25.10 Atherosclerotic heart disease of native coronary artery without angina pectoris; R91.8 Other nonspecific abnormal finding of lung field; E03.9 Hypothyroidism, unspecified; I48.0 Paroxysmal atrial fibrillation; E78.5 Hyperlipidemia, unspecified; C80.1 Malignant (primary) neoplasm, unspecified; F32.A Depression, unspecified; R33.9 Retention of urine, unspecified; F41.9 Anxiety disorder, unspecified; I25.2 Old myocardial infarction; Y83.2 Surgical operation with anastomosis, bypass or graft as the cause of abnormal reaction of the patient, or of later complication, without mention of misadventure at the time of the procedure; Z95.818 Presence of other cardiac implants and grafts; Z98.84 Bariatric surgery status; Z95.5 Presence of coronary angioplasty implant and graft
CPT/HCPCS: J0282; J0690; J0706; J1100; J1160; J1650; J2060; J2710; J3475; Q9967; S0164

== ENCOUNTER 2022-09-06 16:52 | Emergency (ER) | payer MEDICARE, OTHER ==
[~2022-09-06] VITALS: Ht 175.3 cm; Wt 63.5 kg
[2022-09-06] VITALS (15 sets, daily range): BP systolic 128–196; BP diastolic 56–91
[~2022-09-06 16:52] MED LIST changes: +ESCITALOPRAM OX20 MG PO; +LOPRESSOR50 M1 PO
[2022-09-06 17:49] LABS: BASO% 0.7 % (0-3); EOS% 1.6 % (0-8); IMMATURE GRANULOCYTES 0.4 % (0.0-5.0); LYMPH% 22.4 % (15-41); MEAN CELL VOLUME 92.1 fL CALC (80.0-100.0); MEAN CORPUSCULAR HGB 29.1 pG CALC (26.0-32.0); MEAN CORPUSCULAR HGB CONC 31.6 g/dL CAL (32.0-36.0); MONO% 8.8 % (2-13); NEUT# 4.58 thou/uL (2.00-7.15); NEUT% 66.1 % (42-76); RED BLOOD COUNT 4.16 mill/uL (4.20-5.60); RED CELL DISTRI WIDTH 13.5 % (11.5-15.5)
[2022-09-06 17:53] LABS: ANION GAP 11 (6-22 (CALC)); BUN 12 mg/dL (8-23); BUN/CREATININE RATIO 13 (12-20 (CALC)); CARBON DIOXIDE 23 mmol/l (22-30); CHLORIDE 104 mmol/l (95-108); CREATININE 0.9 mg/dL (0.5-1.0); GFR FOR AFR.AMER. > 60 ML/MIN (>=60 (CALC)); GFR OTHER RACES 60 ML/MIN (>=60 (CALC)); LIPASE 37 u/l (23-300); POTASSIUM 3.9 mmol/l (3.5-5.1); SGOT/AST 34 u/l (9-36); SODIUM 134 mmol/l (137-146)
[2022-09-06 17:54] LABS: ALBUMIN 2.9 g/dL (3.2-5.0); ALKALINE PHOSPHATASE 125 u/l (38-126); BILIRUBIN, TOTAL 0.9 mg/dL (0.02-1.3); HEMATOCRIT 38.3 % (37.0-47.0); HEMOGLOBIN 12.1 g/dl (12.0-16.0); TOTAL PROTEIN 6.5 g/dL (6.3-8.2)
[2022-09-06 20:12] LABS: URINE BILIRUBIN - DIPSTICK NEGATIVE (NEGATIVE); URINE BLOOD DIPSTICK NEGATIVE (NEGATIVE); URINE COLOR YELLOW; URINE GLUCOSE - DIPSTICK NEGATIVE (NEGATIVE); URINE KETONE Negative (NEGATIVE); URINE LEUK ESTERASE TRACE (NEGATIVE); URINE NITRITE - DIPSTICK NEGATIVE (Negative); URINE PH 5.5 (4.5-8.0); URINE PROTEIN - DIPSTICK NEGATIVE (NEG-TRACE); URINE SPECIFIC GRAVITY 1.015; URINE UROBILINOGEN - DIPSTICK 0.2 E.U./dL (0.2)
[2022-09-06] MEDS ORDERED: ZITHROMAX250 MG PO (20:26)
[2022-09-06] MEDS ORDERED: LORTAB 1010 MG PO (20:31)
== END 2022-09-06 21:50 | disposition home or self-care (01) ==
LOC: ED 16:52
PROVIDERS: Family Medicine
DX: J18.9 Pneumonia, unspecified organism (principal); I10 Essential (primary) hypertension; I48.91 Unspecified atrial fibrillation; I25.10 Atherosclerotic heart disease of native coronary artery without angina pectoris; E03.9 Hypothyroidism, unspecified; I25.2 Old myocardial infarction; M48.56XD Collapsed vertebra, not elsewhere classified, lumbar region, subsequent encounter for fracture with routine healing; Z95.818 Presence of other cardiac implants and grafts; Z95.5 Presence of coronary angioplasty implant and graft; Z90.49 Acquired absence of other specified parts of digestive tract
CPT/HCPCS: Q9967

== ENCOUNTER 2022-09-13 08:36 | Emergency (ER) | payer MEDICARE, OTHER ==
[2022-09-13] VITALS (11 sets, daily range): BP systolic 137–177; BP diastolic 58–81
[~2022-09-13] VITALS: Ht 175.3 cm; Wt 67.0 kg
[~2022-09-13 08:36] MED LIST changes: +LORTAB 1010 MG PO
[2022-09-13 11:23] LABS: EOS% 3.3 % (0-8); HEMATOCRIT 41.7 % (37.0-47.0); HEMOGLOBIN 12.5 g/dl (12.0-16.0); IMMATURE GRANULOCYTES 0.2 % (0.0-5.0); LYMPH% 39.7 % (15-41); MEAN CELL VOLUME 95.9 fL CALC (80.0-100.0); MEAN CORPUSCULAR HGB 28.7 pG CALC (26.0-32.0); MONO% 8.9 % (2-13); NEUT# 2.27 thou/uL (2.00-7.15); NEUT% 46.9 % (42-76); RED BLOOD COUNT 4.35 mill/uL (4.20-5.60); RED CELL DISTRI WIDTH 13.8 % (11.5-15.5)
[2022-09-13 11:26] LABS: URINE BILIRUBIN - DIPSTICK NEGATIVE (NEGATIVE); URINE COLOR YELLOW; URINE GLUCOSE - DIPSTICK NEGATIVE (NEGATIVE); URINE KETONE Negative (NEGATIVE); URINE NITRITE - DIPSTICK NEGATIVE (Negative); URINE PROTEIN - DIPSTICK NEGATIVE (NEG-TRACE); URINE UROBILINOGEN - DIPSTICK 0.2 E.U./dL (0.2)
[2022-09-13 11:27] LABS: URINE BLOOD DIPSTICK NEGATIVE (NEGATIVE); URINE LEUK ESTERASE NEGATIVE (NEGATIVE)
[2022-09-13 11:37] LABS: ALBUMIN 2.9 g/dL (3.2-5.0); ALKALINE PHOSPHATASE 125 u/l (38-126); AMYLASE 48 u/l (30-110); ANION GAP 9 (6-22 (CALC)); BILIRUBIN, TOTAL 0.7 mg/dL (0.02-1.3); BUN 12 mg/dL (8-23); BUN/CREATININE RATIO 13 (12-20 (CALC)); CHLORIDE 102 mmol/l (95-108); CREATININE 0.9 mg/dL (0.5-1.0); GFR FOR AFR.AMER. > 60 ML/MIN (>=60 (CALC)); GFR OTHER RACES 60 ML/MIN (>=60 (CALC)); LIPASE 11 u/l (23-300); POTASSIUM 4.6 mmol/l (3.5-5.1); SGOT/AST 30 u/l (9-36); SODIUM 134 mmol/l (137-146); TOTAL PROTEIN 6.9 g/dL (6.3-8.2)
[2022-09-13 11:39] LABS: CARBON DIOXIDE 28 mmol/l (22-30)
== END 2022-09-13 13:26 | disposition home or self-care (01) ==
LOC: ED 08:36
PROVIDERS: Family Medicine
DX: K59.00 Constipation, unspecified (principal); N20.0 Calculus of kidney; I10 Essential (primary) hypertension; E03.9 Hypothyroidism, unspecified; I25.10 Atherosclerotic heart disease of native coronary artery without angina pectoris; Z95.818 Presence of other cardiac implants and grafts

== ENCOUNTER 2022-09-23 09:13 | Emergency (ER) | payer MEDICARE, OTHER ==
[2022-09-23] VITALS (23 sets, daily range): BP systolic 108–173; BP diastolic 54–109
[~2022-09-23] VITALS: Ht 172.7 cm; Wt 63.5 kg
[2022-09-23 11:00] LABS: URINE BILIRUBIN - DIPSTICK Negative (NEGATIVE); URINE BLOOD DIPSTICK Negative (NEGATIVE); URINE COLOR Yellow; URINE GLUCOSE - DIPSTICK Negative (NEGATIVE); URINE KETONE Trace mg/dL (NEGATIVE); URINE LEUK ESTERASE Small (NEGATIVE); URINE NITRITE - DIPSTICK Negative (Negative); URINE PH 6.5 (4.5-8.0); URINE PROTEIN - DIPSTICK Negative (NEG-TRACE); URINE SPECIFIC GRAVITY 1.015
[2022-09-23 11:12] LABS: URINE RBC 0-2 RBC/hpf (0-5)
[2022-09-23 11:14] LABS: URINE BACTERIA MODERATE hpf; URINE SQUAMOUS EPITHELIAL CELL MODERATE EPI/hpf (0-FEW); URINE YEAST MODERATE hpf
[2022-09-23 12:11] LABS: BASO% 0.9 % (0-3); EOS% 0.9 % (0-8); HEMATOCRIT 42.9 % (37.0-47.0); HEMOGLOBIN 13.3 g/dl (12.0-16.0); IMMATURE GRANULOCYTES 0.2 % (0.0-5.0); LYMPH% 23.9 % (15-41); MEAN CELL VOLUME 93.3 fL CALC (80.0-100.0); MEAN CORPUSCULAR HGB 28.9 pG CALC (26.0-32.0); MONO% 5.7 % (2-13); NEUT# 3.69 thou/uL (2.00-7.15); NEUT% 68.4 % (42-76); RED BLOOD COUNT 4.6 mill/uL (4.20-5.60); RED CELL DISTRI WIDTH 13.8 % (11.5-15.5)
[2022-09-23 13:13] LABS: ALBUMIN 3.3 g/dL (3.2-5.0); ALKALINE PHOSPHATASE 167 u/l (38-126); ANION GAP 14 (6-22 (CALC)); BILIRUBIN, TOTAL 0.7 mg/dL (0.02-1.3); BUN 11 mg/dL (8-23); BUN/CREATININE RATIO 12 (12-20 (CALC)); CARBON DIOXIDE 23 mmol/l (22-30); CHLORIDE 104 mmol/l (95-108); CREATININE 0.9 mg/dL (0.5-1.0); GFR FOR AFR.AMER. > 60 ML/MIN (>=60 (CALC)); GFR OTHER RACES 60 ML/MIN (>=60 (CALC)); LIPASE 26 u/l (23-300); POTASSIUM 4.2 mmol/l (3.5-5.1); SGOT/AST 28 u/l (9-36); SODIUM 136 mmol/l (137-146); TOTAL PROTEIN 7.6 g/dL (6.3-8.2)
[2022-09-23] MEDS ORDERED: MACROBID100 M1 PO (16:36)
[2022-09-23] MEDS ORDERED: ONDANSETRON4 MG PO (16:36)
[2022-09-23] MEDS ORDERED: LORTAB 1010 MG PO (16:36)
[2022-09-28] MEDS ORDERED: LORTAB 5/3255 MG PO (11:42)
== END 2022-09-23 16:53 | disposition home or self-care (01) ==
LOC: ED 09:13
PROVIDERS: Family Medicine; Nurse Practitioner
DX: N39.0 Urinary tract infection, site not specified (principal); I10 Essential (primary) hypertension; E03.9 Hypothyroidism, unspecified; I25.10 Atherosclerotic heart disease of native coronary artery without angina pectoris; I48.91 Unspecified atrial fibrillation
CPT/HCPCS: Q9967

== ENCOUNTER 2022-11-19 11:48 | Observation (INO) | payer MEDICARE, OTHER ==
[2022-11-19] VITALS (24 sets, daily range): BP systolic 92–132; BP diastolic 46–107
[~2022-11-19] VITALS: Ht 172.7 cm; Wt 73.0 kg
[~2022-11-19 11:48] MED LIST changes: +MACROBID100 M1 PO; +ONDANSETRON4 MG PO
--- NOTE | 2022-11-19 12:00 | NUR ---
PT ARRIVED VIA EMS TO ROOM 6. THE CHIEF COMPLAINT IS FAILURE TO THRIVE. PT REPORT DECREASE IN APPETITE, FEELS WEAK, AND RECENTLY HAD A BIOPSY DONE AND FLUIDS REMOVED ON LUNGS PER PT'S STATEMENT.
[2022-11-19 13:08] LABS: EOS% 0.1 % (0-8); HEMATOCRIT 42.2 % (37.0-47.0); HEMOGLOBIN 13.1 g/dl (12.0-16.0); IMMATURE GRANULOCYTES 0.9 % (0.0-5.0); LYMPH% 22.4 % (15-41); MEAN CELL VOLUME 91.3 fL CALC (80.0-100.0); MEAN CORPUSCULAR HGB 28.4 pG CALC (26.0-32.0); MONO% 7.4 % (2-13); NEUT# 7.78 thou/uL (2.00-7.15); NEUT% 69.2 % (42-76); RED BLOOD COUNT 4.62 mill/uL (4.20-5.60); RED CELL DISTRI WIDTH 16.5 % (11.5-15.5)
[2022-11-19 13:26] LABS: ALKALINE PHOSPHATASE 180 u/l (38-126); ANION GAP 11 (6-22 (CALC)); BUN 28 mg/dL (8-23); BUN/CREATININE RATIO 26 (12-20 (CALC)); CARBON DIOXIDE 25 mmol/l (22-30); CHLORIDE 101 mmol/l (95-108); CREATININE 1.1 mg/dL (0.5-1.0); GFR FOR AFR.AMER. 58 ML/MIN (>=60 (CALC)); GFR OTHER RACES 48 ML/MIN (>=60 (CALC)); LIPASE 23 u/l (23-300); MAGNESIUM 1.9 mg/dL (1.6-2.3); POTASSIUM 3.6 mmol/l (3.5-5.1); SODIUM 134 mmol/l (137-146); TOTAL PROTEIN 6.7 g/dL (6.3-8.2)
[2022-11-19 13:28] LABS: BILIRUBIN, TOTAL 1.7 mg/dL (0.02-1.3); SGOT/AST 53 u/l (9-36)
--- NOTE | 2022-11-19 14:19 | NUR ---
IV ACCESS WAS ABLE TO GBE OBTAINED IN THE RIGHT WRIST, 22G. BY AMELIA XIONG. IVF INITIATED.
--- NOTE | 2022-11-19 16:30 | NUR ---
PATIENT STRAIGHT CATHED FOR URINE SAMPLE. PATIENT IS FEARFUL SHE WOULD FALL DUE TO HER WEAKNESS. STRAIGHT CATH COMPLETED AND URINE OBTAINED. URINE IS CONCENTRATED YELLOW .
[2022-11-19 17:12] LABS: URINE BLOOD DIPSTICK Negative (NEGATIVE); URINE GLUCOSE - DIPSTICK Negative (NEGATIVE); URINE KETONE Negative (NEGATIVE); URINE LEUK ESTERASE Negative (NEGATIVE); URINE NITRITE - DIPSTICK Negative (Negative); URINE PROTEIN - DIPSTICK Negative (NEG-TRACE); URINE SPECIFIC GRAVITY >=1.030
[2022-11-19 17:13] LABS: URINE COLOR Yellow
--- NOTE | 2022-11-19 18:23 | NUR ---
BED ASSIGNMENTY RECIEVED AT THIS TIME. PATIENT TO BE TRANSFERED AFTER SHIFT CHANGE. PATIENT IN NO DISTRESS. V/S REMAIN STABLE.
[2022-11-19] MEDS ORDERED: PERCOCET1 TA2 PO (18:35)
[2022-11-19] MEDS ORDERED: HYDROCHLOROT25 MG PO (18:36)
--- NOTE | 2022-11-19 19:38 | NUR ---
REPORT GIVEN UPSTAIRS
[2022-11-20] VITALS (8 sets, daily range): BP systolic 94–106; BP diastolic 39–61
[2022-11-20 05:51] LABS: BASO% 0.1 % (0-3); EOS% 2.6 % (0-8); HEMATOCRIT 43.7 % (37.0-47.0); HEMOGLOBIN 13.5 g/dl (12.0-16.0); IMMATURE GRANULOCYTES 0.5 % (0.0-5.0); LYMPH% 33.8 % (15-41); MEAN CORPUSCULAR HGB 28.1 pG CALC (26.0-32.0); MEAN CORPUSCULAR HGB CONC 30.9 g/dL CAL (32.0-36.0); NEUT# 5.13 thou/uL (2.00-7.15); RED BLOOD COUNT 4.8 mill/uL (4.20-5.60); RED CELL DISTRI WIDTH 16.7 % (11.5-15.5)
[2022-11-20 06:16] LABS: ALBUMIN 2.6 g/dL (3.2-5.0); BILIRUBIN, TOTAL 1.2 mg/dL (0.02-1.3); CHOLESTEROL HDL RATIO 4.2 (<4.4 (CALC)); CREATININE 1.1 mg/dL (0.5-1.0); MAGNESIUM 1.8 mg/dL (1.6-2.3); POTASSIUM 3.4 mmol/l (3.5-5.1); TOTAL PROTEIN 6.1 g/dL (6.3-8.2)
--- NOTE | 2022-11-20 07:00 | NUR ---
RECEIVED BEDSIDE REPORT FROM PM RN. PT IS LYING IN BED WITH EYES CLOSED. ALL SAFETY MEASURES IN PLACE. VSS. NO NEEDS AT THIS TIME.
--- NOTE | 2022-11-20 20:00 | NUR ---
RECEIVED REPORT FROM NURSE BRIAN, PATIENT ALERT BRIAN, PATIENT RESTING IN BED, DENIES PAIN AT THIS TIME, FAMILY IN ROOM, PATIENT IV ON RT WRIST G 22 PATENT FLUSHES WELL, HOOKED ON TELEMETRY AFLUTTER 77, PLEURX DRAIN ON LATERAL RT SIDEDRESSING IN PLACE CDI, PATIENT WEAR PURPLE BRACELET PATIENT DNR, PATIENT ON BED ALARM.
--- NOTE | 2022-11-21 01:00 | NUR ---
PATIENT ASSISTED TO THE BEDSIDE COMMODE, BM X PERINEAL CARE PROVIDED, PATIENT BACK IN BED, FAMILY IN ROOM, CALL LIGHT IN REACH.
[2022-11-21 03:45] VITALS: BP 103/50
--- NOTE | 2022-11-21 03:49 | NUR ---
PATIENT RESTING IN BED, SHALLOW BREATHING NOT IN DISTRESS, REMAINS ON TELEMETRY, FAMILY IN ROOM, CALL LIGHT IN REACH.
[2022-11-21 03:55] VITALS: BP 103/50
[2022-11-21 05:17] LABS: BASO% 0.1 % (0-3); EOS% 1.4 % (0-8); HEMATOCRIT 39.8 % (37.0-47.0); HEMOGLOBIN 12.2 g/dl (12.0-16.0); IMMATURE GRANULOCYTES 0.7 % (0.0-5.0); LYMPH% 31.1 % (15-41); MEAN CELL VOLUME 91.9 fL CALC (80.0-100.0); MEAN CORPUSCULAR HGB 28.2 pG CALC (26.0-32.0); MEAN CORPUSCULAR HGB CONC 30.7 g/dL CAL (32.0-36.0); MONO% 7.4 % (2-13); NEUT# 4.93 thou/uL (2.00-7.15); NEUT% 59.3 % (42-76); RED BLOOD COUNT 4.33 mill/uL (4.20-5.60); RED CELL DISTRI WIDTH 16.9 % (11.5-15.5)
[2022-11-21 05:41] LABS: ALBUMIN 2.4 g/dL (3.2-5.0); ALKALINE PHOSPHATASE 155 u/l (38-126); BILIRUBIN, TOTAL 1.6 mg/dL (0.02-1.3); BUN 24 mg/dL (8-23); BUN/CREATININE RATIO 26 (12-20 (CALC)); CHLORIDE 107 mmol/l (95-108); CREATININE 0.9 mg/dL (0.5-1.0); GFR FOR AFR.AMER. > 60 ML/MIN (>=60 (CALC)); GFR OTHER RACES 60 ML/MIN (>=60 (CALC)); MAGNESIUM 1.6 mg/dL (1.6-2.3); POTASSIUM 3.6 mmol/l (3.5-5.1); SGOT/AST 28 u/l (9-36); SODIUM 134 mmol/l (137-146); TOTAL PROTEIN 5.5 g/dL (6.3-8.2)
[2022-11-21 05:48] LABS: ANION GAP 11 (6-22 (CALC)); CARBON DIOXIDE 20 mmol/l (22-30)
--- NOTE | 2022-11-21 08:09 | NUR ---
PT RESTING IN BED ON LEFT SIDE POSITIONED WITH PILLOWS AND TWO FAMILY MEMBERS AT BEDSIDE. ALERT AND ORIENTED TO PERSON AND PLACE. C/O SEVERE GENERALIZED PAIN AND REQUESTS PAIN MEDICATION. RESPIRATIONS EVEN AND UNLABORED; DENIES SOB. TELE ON; IV SITE APPEARS HEALTHY AND FLUSHES. SCATTERED BRUISING TO EXTREMITIES. PLAN OF CARE REVIEWED; PT AND FAMILY ENCOURAGED TO EXPRESS ANY NEEDS OR CONCERNS. EAGER TO BE DISCHARGED HOME ON HOSPICE TODAY; AWAITING HOME EQUIPMENT DELIVERY. SAFETY MEASURES IN PLACEL; CALL LIGHT SYSTEM REVIEWED AND WITHIN REACH.
[2022-11-21 08:20] VITALS: BP 105/62
--- NOTE | 2022-11-21 09:25 | NUR ---
EMMANUELLE, HOSPICE NURSE, AT BEDSIDE.
--- NOTE | 2022-11-21 12:24 | NUR ---
PT RESTING IN BED WITH NO SIGNS OF DISTRESS. INCREASED LETHARGY AFTER PRECOCET GIVEN THIS MORNING; AROUSES SPONTANEOUSLY. ASSISTED WITH REPOSITIONING. SAFETY MEASURES IN PLACE; NEEDS ANTICIPATED BY STAFF. CALL LIGHT WITHIN REACH.
--- NOTE | 2022-11-21 14:49 | NUR ---
IV site discontinued, cath intact. No edema , no redness, voices no discomfort.
--- NOTE | 2022-11-21 15:37 | NUR ---
Discharge instructions given. Patient verbalizes understanding of same. Discharged in stable condition via [facility] to Home with [facility]. All belongings sent with pt. called to notify staff that all home equipment is ready for patient to arrive.
== END 2022-11-21 15:37 | disposition hospice, home (50) ==
LOC: ED 11:48 → ED-I 16:55 → ED 17:27 → MS2 17:28
PROVIDERS: Nurse Practitioner; ADMIT Student in an Organized Health Care Education/Training Program; ATTEND Student in an Organized Health Care Education/Training Program
DX: R62.7 Adult failure to thrive (principal); E86.0 Dehydration; R64 Cachexia; J91.0 Malignant pleural effusion; C80.1 Malignant (primary) neoplasm, unspecified; J93.81 Chronic pneumothorax; E46 Unspecified protein-calorie malnutrition; I12.9 Hypertensive chronic kidney disease with stage 1 through stage 4 chronic kidney disease, or unspecified chronic kidney disease; N18.30 Chronic kidney disease, stage 3 unspecified; I25.10 Atherosclerotic heart disease of native coronary artery without angina pectoris; E03.9 Hypothyroidism, unspecified; K21.9 Gastro-esophageal reflux disease without esophagitis; I48.91 Unspecified atrial fibrillation; D64.9 Anemia, unspecified; E87.20 Acidosis, unspecified; E78.5 Hyperlipidemia, unspecified; F41.9 Anxiety disorder, unspecified; F32.A Depression, unspecified; I25.2 Old myocardial infarction; Z51.5 Encounter for palliative care; Z97.8 Presence of other specified devices; Z68.24 Body mass index [BMI] 24.0-24.9, adult; Z95.818 Presence of other cardiac implants and grafts; Z90.49 Acquired absence of other specified parts of digestive tract; Z98.84 Bariatric surgery status; Z95.5 Presence of coronary angioplasty implant and graft; Z20.822 Contact with and (suspected) exposure to COVID-19
CPT/HCPCS: J1650; Q9967